=== PATIENT | male | born 1960 | race Caucasian/White ===

== ENCOUNTER 2024-01-07 08:13 | Inpatient (IN) | payer BC ==
--- NOTE | 2024-01-07 08:46 | ED ---
General Adult HPI - General Chief complaint: Neuro Symptoms/Deficit Stated complaint: L side weakness Time Seen by Provider: 01/07/24 08:25 Source: patient, RN notes reviewed, old records reviewed Mode of arrival: ambulatory Limitations: no limitations - History of Present Illness Initial comments: This is a 63-year-old male who presents to the emergency department the morning of the he states he got up and his left side was weak and got progres sively weaker. Patient states the symptoms were much worse this morning when he woke up but they seem to have gone away almost completely now. Patient denies any slurred speech. Patient has any facial droop. Patient Nuys any headache patient denies any numbness. Patient states earlier today it was difficult to lift his leg or to make his arm touches chest or belly. Patient denies any recent injury or trauma. Patient states he has a history of 2 previous TIAs. Patient states he takes 2 baby aspirin's every day. - Related Data Allergies Allergy/AdvReac Type Severity Reaction Status Date / Time Penicillins Allergy Unknown Verified 01/07/24 08:27 Review of Systems ROS Statement: Those systems with pertinent positive or pertinent negative responses have been documented in the HPI. ROS Other: All systems not noted in ROS Statement are negative. Past Medical History Past Medical History: CVA/TIA Past Surgical History: Tonsillectomy Additional Past Surgical History / Comment(s): Bilateral cataract, Past Psychological History: No Psychological Hx Reported Smoking Status: Former smoker Past Alcohol Use History: None Reported, Daily Past Drug Use History: None Reported General Exam - General Exam Comments Initial Comments: GENERAL: Patient is well-developed and well-nourished. Patient is nontoxic and well-h ydrated and is in no acute distress. ENT: Neck is soft and supple. No significant lymphadenopathy is noted. Oropharynx is clear. Moist mucous membranes. Neck has full range of motion without elic iting any pain. EYES: The sclera were anicteric and conjunctiva were pink and moist. Extraocular movements were intact and pupils were equal round and reactive to light. Eyelids were unremarkable. PULMONARY: Unlabored respirations. Good breath sounds bilaterally. No audible rales rhonchi or wheezing was noted. CARDIOVASCULAR: There is a regular rate and rhythm without any murmurs gallops or rubs. ABDOMEN: Soft and nontender with normal bowel sounds. SKIN: Skin is clear with no lesions or rashes and otherwise unremarkable. NEUROLOGIC: Patient is alert and oriented x3. Cranial nerves II through XII are grossly intact. Motor and sensory are also intact. Normal speech, volume and content. Symmetrical smile. Cerebellar exam grossly intact. Patient's NIH is 0 MUSCULOSKELETAL: Normal extremities with adequate strength and full range of motion. No lower extremity swelling or edema. No calf tenderness. LYMPHATICS: No significant lymphadenopathy is noted PSYCHIATRIC: Normal psychiatric evaluation. Limitations: no limitations Course Vital Signs 01/07/24 01/07/24 01/07/24 08:22 08:36 08:52 Temperature 97.9 F 98.7 F Pulse Rate 71 62 59 L Respiratory 18 18 16 Rate Blood Pressure 200/84 182/91 172/84 O2 Sat by Pulse 98 99 97 Oximetry 01/07/24 10:13 Temperature Pulse Rate 57 L Respiratory 16 Rate Blood Pressure 184/90 O2 Sat by Pulse 97 Oximetry Medical Decision Making - Medical Decision Making EKG is interpreted by myself but EKG shows a sinus rhythm at 62 bpm parables 146 QRS is 90 QT interval 397 QTc is 1. Patient EKG shows no ST segment elevation or depression Was pt. sent in by a medical professional or institution (, PA, C UNIX DEVELOPER, urgent care, hospital, or senior care...) When possible be specific @ -No Did you speak to anyone other than the patient for history (EMS, parent, family, police, friend...)? What history was obtained from this source @ -No Did you review nursing and triage notes (agree or disagree)? Why? @ -I reviewed and agree with nursing and triage notes Were old charts reviewed (outside hosp., previous admission, EMS record, old EKG, old radiological studies, urgent care reports/EKG's, senior care records)? Report findings @ -No old charts were reviewed Differential Diagnosis? @ -Differential CVA Ischemic stroke, hemorrhagic stroke, brain tumor, atypical migraine, Wernicke's encephalopathy, seizure, multiple sclerosis, meningitis, encephalitis, hypo glycemia, Guillain-Bernard, electrolytes disturbance, myasthenia gravis.... This is not meant to be an all-inclusive list EKG interpreted by me (3pts min.). @ -As above X-rays interpreted by me (1pt min.). @ -Chest x-ray shows no acute normality CT interpreted by me (1pt min.). @ -CT angiogram of the head and neck showed no acute normality. CT of the brain shows culver matter changes on the right which is new compared to an old EKG. U/S interpreted by me (1pt. min.). @ -None done What testing was considered but not performed or refused? (CT, X-rays, U/S, labs)? Why? @ -None What meds were considered but not given or refused? Why? @ -None Did you discuss the management of the patient with other professionals (professionals i.e. , PA, C UNIX DEVELOPER, lab, RT, psych nurse, health and social care teacher, senior mortgage loan processor, teacher, human resources officer, case assembler)? Give summary @ -I [facility] they agreed admit the patient Was smoking cessation discussed for >3mins.? @ -No Was critical care preformed (if so, how long)? @ -No Were there social determinants of health that impacted care today? How? (Frank elessness, low income, unemployed, alcoholism, drug addiction, transportation, low edu. Level, literacy, decrease access to med. care, correction, rehab)? @ -No Was there de-escalation of care discussed even if they declined (Discuss DNR or withdrawal of care, Hospice)? DNR status @ -No What co-morbidities impacted this encounter? (DM, HTN, Smoking, COPD, CAD, Cancer, CVA, ARF, Chemo, Hep., AIDS, mental health diagnosis, sleep apnea, morbid obesity)? @ -None Was patient admitted / discharged? Hospital course, mention meds given and route, prescriptions, significant lab abnormalities, going to OR and other pertinent info. @ -Patient's CAT scan was indicative of a possible infarct patient will need a further workup including MRI. Patient will be admitted and neurology will be consulted Undiagnosed new problem with uncertain prognosis? @ -No Drug Therapy requiring intensive monitoring for toxicity (Heparin, Nitro, Insulin, Cardizem)? @ -No Were any procedures done? @ -No Diagnosis/symptom? @ -CVA Acute, or Chronic, or Acute on Chronic? @ -Acute Uncomplicated (without systemic symptoms) or Complicated (systemic symptoms)? @ -Complicated Side effects of treatment? @ -No Exacerbation, Progression, or Severe Exacerbation? @ -No Poses a threat to life or bodily function? How? (Chest pain, USA, NM, pneumonia, PE, COPD, DKA, ARF, appy, cholecystitis, CVA, Diverticulitis, Homicidal, Suicidal, threat to staff... and all critical care pts) @ -Yes this can lead to further stroke and increased Morbidity mortality - Lab Data Result diagrams: 01/07/24 08:49 01/07/24 08:49 Lab Results 01/07/24 01/07/24 01/07/24 Range/Units 08:49 08:49 08:49 WBC 5.5 (3.8-10.6) k/uL RBC 4.82 (4.30-5.90) m/uL Hgb 15.6 (13.0-17.5) gm/dL Hct 47.4 (39.0-53.0) % MCV 98.4 (80.0-100.0) fL MCH 32.3 (25.0-35.0) pg MCHC 32.8 (31.0-37.0) g/dL RDW 12.6 (11.5-15.5) % Plt Count 204 (150-450) k/uL MPV 7.7 Neutrophils % 67 % Lymphocytes % 24 % Monocytes % 5 % Eosinophils % 1 % Basophils % 1 % Neutrophils # 3.7 (1.3-7.7) k/uL Lymphocytes # 1.3 (1.0-4.8) k/uL Monocytes # 0.3 (0-1.0) k/uL Eosinophils # 0.1 (0-0.7) k/uL Basophils # 0.0 (0-0.2) k/uL PT 10.2 (10.0-12.5) sec INR 0.9 (<1.2) APTT 23.5 (22.0-30.0) sec Sodium 142 (137-145) mmol/L Potassium 4.6 (3.5-5.1) mmol/L Chloride 109 H (98-107) mmol/L Carbon Dioxide 27 (22-30) mmol/L Anion Gap 6 mmol/L BUN 19 (9-20) mg/dL Creatinine 0.69 (0.66-1.25) mg/dL Est GFR (CKD-EPI)AfAm >90 (>60 ml/min/1.73 sqM) Est GFR (CKD-EPI)NonAf >90 (>60 ml/min/1.73 sqM) Glucose 120 H (74-99) mg/dL Calcium 9.6 (8.4-10.2) mg/dL Total Bilirubin 0.7 (0.2-1.3) mg/dL AST 42 (17-59) U/L ALT 52 H (4-49) U/L Alkaline Phosphatase 61 (38-126) U/L Creatine Kinase 84 (55-170) U/L Troponin I (0.000-0.034) ng/mL Total Protein 7.1 (6.3-8.2) g/dL Albumin 4.5 (3.5-5.0) g/dL 01/07/24 Range/Units 08:49 WBC (3.8-10.6) k/uL RBC (4.30-5.90) m/uL Hgb (13.0-17.5) gm/dL Hct (39.0-53.0) % MCV (80.0-100.0) fL MCH (25.0-35.0) pg MCHC (31.0-37.0) g/dL RDW (11.5-15.5) % Plt Count (150-450) k/uL MPV Neutrophils % % Lymphocytes % % Monocytes % % Eosinophils % % Basophils % % Neutrophils # (1.3-7.7) k/uL Lymphocytes # (1.0-4.8) k/uL Monocytes # (0-1.0) k/uL Eosinophils # (0-0.7) k/uL Basophils # (0-0.2) k/uL PT (10.0-12.5) sec INR (<1.2) APTT (22.0-30.0) sec Sodium (137-145) mmol/L Potassium (3.5-5.1) mmol/L Chloride (98-107) mmol/L Carbon Dioxide (22-30) mmol/L Anion Gap mmol/L BUN (9-20) mg/dL Creatinine (0.66-1.25) mg/dL Est GFR (CKD-EPI)AfAm (>60 ml/min/1.73 sqM) Est GFR (CKD-EPI)NonAf (>60 ml/min/1.73 sqM) Glucose (74-99) mg/dL Calcium (8.4-10.2) mg/dL Total Bilirubin (0.2-1.3) mg/dL AST (17-59) U/L ALT (4-49) U/L Alkaline Phosphatase (38-126) U/L Creatine Kinase (55-170) U/L Troponin I <0.012 (0.000-0.034) ng/mL Total Protein (6.3-8.2) g/dL Albumin (3.5-5.0) g/dL Disposition Clinical Impression: Cerebrovascular accident (CVA) Disposition: ADMITTED IP TO THIS HOSP Referrals: None,Stated [Primary Care Provider] - 1-2 days Time of Disposition: 10:38
[2024-01-07] MEDS: SODIUM CHLORIDE 0.9% 500 ML 500 ML IV STA (08:50)
[2024-01-07 09:04] LABS: INR 0.9 (<1.2); Partial Thromboplastin Time 23.5 sec (22.0-30.0); Prothrombin Time 10.2 sec (10.0-12.5)
[2024-01-07 09:06] LABS: ALT 52 U/L (4-49); AST 42 U/L (17-59); African American GFR (CKD) >90 (>60 ml/min/1.73 sqM); Albumin 4.5 g/dL (3.5-5.0); Alkaline Phosphatase 61 U/L (38-126); Anion Gap 6 mmol/L; Blood Urea Nitrogen 19 mg/dL (9-20); Calcium 9.6 mg/dL (8.4-10.2); Carbon Dioxide 27 mmol/L (22-30); Chloride 109 mmol/L (98-107); Creatine Kinase 84 U/L (55-170); Glucose 120 mg/dL (74-99); Non-African American GFR(CKD) >90 (>60 ml/min/1.73 sqM); Potassium 4.6 mmol/L (3.5-5.1); Sodium 142 mmol/L (137-145); Total Bilirubin 0.7 mg/dL (0.2-1.3); Total Protein 7.1 g/dL (6.3-8.2)
[2024-01-07 09:20] LABS: Basophils % (A) 1 %; Eosinophils # (A) 0.1 k/uL (0-0.7); Eosinophils % (A) 1 %; HCT 47.4 % (39.0-53.0); HGB 15.6 gm/dL (13.0-17.5); Lymphocytes # (A) 1.3 k/uL (1.0-4.8); Lymphocytes % (A) 24 %; MCH 32.3 pg (25.0-35.0); MCHC 32.8 g/dL (31.0-37.0); MCV 98.4 fL (80.0-100.0); Mean Platelet Volume 7.7; Monocytes # (A) 0.3 k/uL (0-1.0); Monocytes % (A) 5 %; Neutrophils # (A) 3.7 k/uL (1.3-7.7); Neutrophils % (A) 67 %; Platelet Count 204 k/uL (150-450); RBC 4.82 m/uL (4.30-5.90); RDW 12.6 % (11.5-15.5); WBC 5.5 k/uL (3.8-10.6)
--- NOTE | 2024-01-07 09:58 | CT ---
EXAMINATION TYPE: CT brain wo con CT DLP: 1208.9 mGycm, Automated exposure control for dose reduction was used. DATE OF EXAM: 01/07/2024 9:35 AM COMPARISON: None CLINICAL INDICATION:Male, 63 years old with history of Neuro deficit, acute, stroke suspected, Left s ided weakness TECHNIQUE: Brain: Axial CT images of the brain were obtained with coronal and sagittal reformats created and rev iewed. Contrast used: None. Oral contrast used: None. FINDINGS: Brain: Extra-axial spaces: No abnormal extra-axial fluid collections. Ventricular system: Within normal limits Cerebral parenchyma: Indeterminate culver matter changes in the right centrum semiovale series 201 imag e 44. With more remote appearing right mullen radiata injury. No acute intraparenchymal hemorrhage or mass effect. The remainder of the culver-white junctions are well differentiated. Cerebellum: Unremarkable. Mass effect: No evidence of midline shift. Intracranial vasculature: unremarkable Soft tissues: Normal. Calvarium/osseous structures: No depressed skull fracture. Paranasal sinuses and mastoid air cells: Mild scattered paranasal sinus disease. Visualized orbits: Bilateral aphakia IMPRESSION: Indeterminate right centrum semiovale culver matter changes series 201 image 44. Additional remote appe aring injury right mullen radiata of the frontal lobe. Correlate with MRI.
--- NOTE | 2024-01-07 10:01 | XR ---
EXAMINATION TYPE: XR chest 2V DATE OF EXAM: 01/07/2024 9:28 AM CLINICAL INDICATION:Male, 63 years old with history of altered mental status; [facility] COMPARISON: None TECHNIQUE: XR chest 2V Frontal view of the chest. FINDINGS: Lungs/Pleura: There is no evidence of pleural effusion, focal consolidation, or pneumothorax. Pulmonary vascularity: Unremarkable. Heart/mediastinum: Cardiomediastinal silhouette is unremarkable. Musculoskeletal: No acute osseous pathology. IMPRESSION: No acute cardiopulmonary disease/process.
--- NOTE | 2024-01-07 10:29 | CT ---
EXAMINATION TYPE: CT angio head neck DATE OF EXAM: 01/07/2024 HISTORY: Left sided weakness COMPARISON: None CT DLP: 419.4 mGycm. Automated Exposure Control for Dose Reduction was Utilized. TECHNIQUE: CTA scan of the head and neck is performed without and with IV Contrast, patient injected with 65 ml mL of Isovue 370, axial images are obtained, coronal and sagittal reformatted images are reviewed. 3D reconstructed images are created on an independent workstation and reviewed. 3-D postpro cessing was performed. FINDINGS: FINDINGS: The brachiocephalic origins are widely patent and no significant stenosis. There is no significant stenosis of the common or internal carotid arteries within the neck. There is no stenosis of the vertebral arteries. Intracranially, there is no stenosis, segmental occlusion, sizable aneurysm sac or vascular malformat ion. IMPRESSION:. No significant abnormality seen. NASCET criteria was used in interpretation of this exam?
[2024-01-07] MEDS: ASPIRIN 325 MG TAB PO STA (11:43)
[2024-01-07] MEDS: CLOPIDOGREL 75 MG TAB PO SCH (15:02)
--- NOTE | 2024-01-07 18:39 | P.CNNES ---
History of Present Illness Consult date: 01/07/24 Requesting physician: Velasquez Dangelo Reason for Consult: CVA History of Present Illness: Patient is a 63-year-old right-handed male came to the hospital this morning at 8:13 AM with strokelike symptoms. 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 He came back and went to sleep. When h rickey woke up finally at 5:30 AM, he felt dizzy, imbalance, and some weakness on the left side. He moved around, and by around 8 AM, symptoms started improving and was mostly gone by end of the day. On Thursday, yesterday he woke up and the same thing happened but was slightly worse. The symptoms persisted. This morning the symptoms got further worse with left-sided weakness, and he could not hold the phone with his left hand, his fingers did not work. He could not use the nasal spray with his left hand. He felt his left eye was droopy yesterday and this morning. He was feeling dizzy, leading to the left side and his balance was off. As the symptoms persisted, he decided to come to the ER. He denied any slurred speech or problem with the vision. Vital signs on arrival blood pressure 200/84, which came down to 182/91, pulse rate 71 temperature 97.9. Blood test shows normal CBC PT PTT, normal CMP with mildly elevated ALT 52. Troponin negative. EKG showed sinus rhythm CT head sh owed indeterminate right centrum semiovale culver matter changes. Additional remote appearing injury right mullen radiator of the frontal lobe. Correlate with MRI. I personally reviewed CT head and agree with the findings. Chest x- ray showed no acute process. CTA of head and neck showed no significant abnormality. Patient states his symptoms have improved today in the hospital. He was not abl e to coordinate his movement of the left arm but now has improved. Home medications include fish oil, garlic. Patient states that he does take aspirin 81 mg twice daily and some herbs as well. Patient states he had a TIA about 14 years ago when he was admitted to the hospital and [place] in [place]. It affected his right arm, right leg weakness, for which he underwent MRI of the brain and was noted to have a very small area of stroke. He had an echo with bubble study, which according to him did not show any "hole in the heart". He states that he had a event monitor placed for 1 month, which did not show any atrial fibrillation. The symptoms resolved in 3 weeks. He was placed on blood thinners. He had another TIA about 4 years ago in which she developed numbness of the medial 3 fingers of the right hand as well as the numbness of the right perioral region and the tongue. This time he did not seek medical attention. The symptoms went away in 3 weeks. Patient has smoked 2 pack/day for 26 years, quit at age 41 (22 years ago). Denies alcohol use. Review of Systems Constitutional: Denies chills, Denies fever Eyes: denies blurred vision, denies diplopia, denies pain Ears: deny: decreased hearing, ear discharge Ears, nose, mouth and throat: Denies headache, Denies sore throat Cardiovascular: Denies chest pain, Denies shortness of breath Respiratory: Denies cough, Denies excessive sputum Gastrointestinal: Denies abdominal pain, Denies diarrhea, Denies nausea, Denies vomiting Musculoskeletal: Denies low back pain, Denies myalgias, Denies neck pain Integumentary: Denies pruritus, Denies rash Neurological: Reports as per HPI Past Medical History Past Medical History: CVA/TIA Past Surgical History: Tonsillectomy Additional Past Surgical History / Comment(s): Bilateral cataract, Past Psychological History: No Psychological Hx Reported Smoking Status: Former smoker Past Alcohol Use History: None Reported, Daily Past Drug Use History: None Reported Medications and Allergies Home Medications Medication Instructions Recorded Confirmed Type Fish Oil(Unknown Dose) 1 cap PO DAILY 01/07/24 01/07/24 History Garlic(Unknown Dose) 1 cap PO DAILY 01/07/24 01/07/24 History Allergies Allergy/AdvReac Type Severity Reaction Status Date / Time Penicillins Allergy Unknown Verified 01/07/24 11:50 Childhood Physical Examination - Vital Signs Vital Signs: Vital Signs Temp Pulse Resp BP Pulse Ox 01/07/24 12:00 56 L 16 152/80 99 01/07/24 11:38 53 L 16 140/77 99 01/07/24 10:13 57 L 16 184/90 97 01/07/24 08:52 59 L 16 172/84 97 01/07/24 08:36 98.7 F 62 18 182/91 99 01/07/24 08:22 97.9 F 71 18 200/84 98 Intake and Output 01/06/24 01/07/24 01/07/24 22:59 06:59 14:59 Other: Weight 72.575 kg Patient is an elderly male, very pleasant, in no acute distress. Patient is alert awake oriented to time place and person. Speech and language functions are normal. Patient can name and repeat very well. No aphasia or dysarthria. Attention, concentration and fund of knowledge is adequate. On cranial nerve examination, pupils are equal, round and reacting to light, visual barajas are full on confrontation, with no neglect on double simultaneous stimulation. Extraocular muscles are intact with no nystagmus. Face is symmetric, tongue protrudes to the midline. Palatal elevation and sensation normal, hearing and shoulder shrug normal, facial sensation normal. On muscle strength testing, there is very mild left pronator drift about 5 to 10 degree, and the strength is normal in arms and legs distally and proximally. Deep tendon reflexes are symmetric 2 at the biceps, 2 brachioradialis, 2+ at the knees, 1+ ankles and plantar is down on the right, up on the left. Sensory to touch is equal with no neglect on double simultaneous stimulation. Cerebellar function showed no ataxia for [id number] testing. No dysdiadochokinesia. No ataxia for [id number] testing on either side. Tone and bulk of muscles normal. Gait deferred.. On general examination, there is no carotid bruit or murmur, S1-S2 audible. Chest is clear on consultation. Abdomen is soft nontender. No organomegaly, bowel sounds present. Peripheral pulses are present. No peripheral edema. Results - Laboratory Findings CBC and BMP: 01/07/24 08:49 01/07/24 08:49 Abnormal Lab Findings: Abnormal Labs 01/07/24 08:49 Chloride 109 H Glucose 120 H ALT 52 H Assessment and Plan Assessment: * Probable subacute ischemic stroke with mild left hemiparesis. Symptoms have remarkably improved, now with only mild left pronator drift with NIH stroke scale of 1. * Previous history of stroke/TIA x 2 in the past. Symptoms lasted for about 3 weeks each time, but patient has no residual deficits. * Abnormal CT head, with evidence of multiple previous CVA, mainly involving the right centrum semiovale, right external capsule * Ex tobacco use Plan: MRI of the brain with and without contrast, evaluate for acute CVA, rule out demyelinating disease 2-D echo with bubble study to rule out PFO CTA head and neck showed: No significant abnormality seen. Fasting a.m. lipid panel Hemoglobin A1c Permissive hypertension for next 24-48 hours Patient has been taking aspirin 81 mg twice daily prior to arrival. He has failed aspirin. We will start Plavix 75 mg daily. Neuro checks every 4 hours Telemetry monitoring rule out any arrhythmia PT, OT, speech therapy DVT prophylaxis: Heparin 5000 units subcu every 8 hours Neurology will continue to follow. Thank you for the consult. Time with Patient: Greater than 30
[2024-01-07] MEDS ORDERED: HYDROcodone/APAP 5-325MG 1 EACH TAB PO PRN (21:12)
[2024-01-07] MEDS: ACETAMINOPHEN TAB 325 MG TAB PO PRN (21:56)
--- NOTE | 2024-01-07 23:08 | P.HPIM ---
History of Present Illness H&P Date: 01/07/24 Chief Complaint: Left-sided weakness Patient is a 63-year-old male with known history of CVA/TIA x 2, prior history of smoking presents to ER with the complaints of left-sided weakness. Patient states that he got up yesterday morning and felt his left of the body is weaker compared to right. Patient's symptoms did improve throughout the day but when he woke up this morning his symptoms got worse which made him to come to the ER. Patient is complaining of left upper and lower extremity weakness. Denies any facial deviation. No droop. Denies slurred speech. Denies any trouble finding words. No complaints of headache. No numbness or tingling. Denies any neck p ain or shoulder pain. Denies any recent illnesses. Patient had prior history of TIA x 2 several years ago which affected his right side at that time. And had stroke workup done including MRI at that time. Patient has been taking aspirin. EKG showed sinus rhythm with CT head showed intermediate right centrum semiovale culver matter changes additional remote appearing injury right coronary radiator of the frontal lobe. Correlate with MRI. Chest x-ray showed no acute cardiopulmonary process. CT angiogram of the head and neck showed brachiocephalic arteries are widely patent with no significant stenosis. Lab data showed WBC 5.4 hemoglobin 13.6 and platelets 204 Sodium 142 potassium 4.6 chloride 109 bicarb is 27 BUN 19 and creatinine 0.69 and blood sugar 120 and A1c 6.2. Liver enzymes showed AST 42 ALT 42 and alk phos 61 troponin x 1 negative. Albumin 4.5. Review of Systems Constitutional: Patient denies any fever or chills . No generalized weakness or weight loss. Abdomen: Patient denied nausea vomiting and diarrhea and abdominal pain. Cardiovascular: Patient denies any chest pain or short of breath no palpitations. Respiratory: patient denied any cough or sputum production. No shortness of breath Neurologic: Patient denied any numbness or tingling. no headache. Left-sided weakness. Musculoskeletal: Patient denies any complaints of joint swelling or deformity. Skin: Negative Psychiatric: Negative Endocrine: No heat or cold intolerance. No recent weight gain. Genitourinary: No dysuria or hematuria. All other 14 point ROS negative except the above Past Medical History Past Medical History: CVA/TIA Past Surgical History: Tonsillectomy Additional Past Surgical History / Comment(s): Bilateral cataract, Past Psychological History: No Psychological Hx Reported Smoking Status: Former smoker Past Alcohol Use History: None Reported, Daily Past Drug Use History: None Reported Medications and Allergies Home Medications Medication Instructions Recorded Confirmed Type Fish Oil(Unknown Dose) 1 cap PO DAILY 01/07/24 01/07/24 History Garlic(Unknown Dose) 1 cap PO DAILY 01/07/24 01/07/24 History Allergies Allergy/AdvReac Type Severity Reaction Status Date / Time Penicillins Allergy Unknown Verified 01/07/24 11:50 Childhood Physical Exam Vitals: Vital Signs Temp Pulse Resp BP Pulse Ox 01/07/24 15:48 50 L 16 172/89 99 01/07/24 15:00 68 16 194/90 01/07/24 12:00 56 L 16 152/80 99 01/07/24 11:38 53 L 16 140/77 99 01/07/24 10:13 57 L 16 184/90 97 01/07/24 08:52 59 L 16 172/84 97 01/07/24 08:36 98.7 F 62 18 182/91 99 01/07/24 08:22 97.9 F 71 18 200/84 98 Intake and Output 01/07/24 01/07/24 01/07/24 06:59 14:59 22:59 Other: Weight 72.575 kg PHYSICAL EXAMINATION: Patient is lying in the bed comfortably, no acute distress, awake alert and oriented.. HEENT: Normocephalic. Neck is supple. Pupils reactive. Nostrils clear. Oral cavity is moist. Neck reveals no JVD, carotid bruits, or thyromegaly. CHEST EXAMINATION: Trachea is central. Symmetrical expansion. Lung barajas clear to auscultation and percussion. CARDIAC: Normal S1, S2 with no gallops. No murmurs ABDOMEN: Soft. Bowel sounds normal. No organomegaly. No abdominal bruits. Extremities: reveal no edema. No clubbing or cyanosis Neurologically awake, alert, oriented x3 patient does have left-sided hemiparalysis. Skin: No rash or skin lesions. Psychiatric: Coperative. Nonsuicidal Musculoskeletal: No joint swelling or deformity. Normal range of motion. Results CBC & Chem 7: 01/07/24 08:49 01/08/24 07:01 Labs: Abnormal Lab Results - Last 24 Hours (Table) 01/07/24 Range/Units 08:49 Chloride 109 H (98-107) mmol/L Glucose 120 H (74-99) mg/dL ALT 52 H (4-49) U/L Thrombosis Risk Factor Assmnt - DVT/VTE Prophylaxis DVT/VTE Prophylaxis: Pharmacologic Prophylaxis ordered Assessment and Plan Assessment: Possible subacute CVA with left-sided hemiparesis. CT head showed intermediate right centrum's semiovale culver matter changes and additional appearing in the right mullen radiata of frontal lobe. Prior history of TIA x 2. Patient had right-sided weakness at that time which has been resolved after couple of weeks. Prior history of smoking DVT prophylaxis with heparin subcu Plan: Patient will be continued on aspirin and statins. A1c B12 folate and TSH levels was ordered. Patient had workup including CT head and CTA head and neck was done which showed no significant stenosis. MRI of the brain was ordered to rule out acute CVA or demyelinating disease. 2D echocardiogram was ordered with bubble study. Continue with neurochecks every 4 hourly. Continue telemonitoring. PT OT and speech therapy evaluation. Follow-up closely. Neurology is on board. Time with Patient: Greater than 30
[2024-01-07] MEDS: HEPARIN SODIUM,PORCINE 5,000 UNIT/ML 1 ML VIAL SQ SCH (23:28)
[2024-01-08 07:55] LABS: African American GFR (CKD) >90 (>60 ml/min/1.73 sqM); Anion Gap 4 mmol/L; Blood Urea Nitrogen 14 mg/dL (9-20); Calcium 9.7 mg/dL (8.4-10.2); Carbon Dioxide 27 mmol/L (22-30); Chloride 107 mmol/L (98-107); Glucose 109 mg/dL (74-99); Non-African American GFR(CKD) >90 (>60 ml/min/1.73 sqM); Potassium 4.4 mmol/L (3.5-5.1); Sodium 138 mmol/L (137-145)
[2024-01-08] MEDS: ASPIRIN 325 MG TAB PO SCH (08:32)
[2024-01-08] MEDS: CLOPIDOGREL 75 MG TAB PO STA (13:54)
--- NOTE | 2024-01-08 15:03 | CA ---
Transthoracic Echo Report Name: Ganga Hawk Age: 63 Gender: M : 1960 Exam Date: 01/07/2024 15:10 Exam Location: [place] [facility] Ht (in): 72 Wt (lb): 160 Ordering Physician: Juan Hare MD Attending/Referring Phys: Junior Accounting Clerk Kaye Lares RDCS Procedure CPT: Indications: CVA Cardiac Hx: Technical Quality: Fair Contrast 1: Total Dose (mL): Contrast 2: Total Dose (mL): MEASUREMENTS (Male / Female) Normal Values 2D ECHO LV Diastolic Diameter PLAX 4.8 cm 4.2 - 5.9 / 3.9 - 5.3 cm LV Systolic Diameter PLAX 3.5 cm IVS Diastolic Thickness 1.2 cm 0.6 - 1.0 / 0.6 - 0.9 cm LVPW Diastolic Thickness 1.1 cm 0.6 - 1.0 / 0.6 - 0.9 cm LV Relative Wall Thickness 0.5 RV Internal Dim ED PLAX 2.8 cm LA Systolic Diameter LX 0.0 cm 3.0 - 4.0 / 2.7 - 3.8 cm LA Volume 45.9 cm??? 18 - 58 / 22 - 52 cm??? LA Volume Index 24.0 cm???/m??? 16 - 28 cm???/m??? M-MODE Aortic Root Diameter MM 3.5 cm LA Systolic Diameter MM 3.6 cm LA Ao Ratio MM 1.0 AV Cusp Separation MM 2.5 cm DOPPLER AV Peak Velocity 86.0 cm/s AV Peak Gradient 3.0 mmHg AV Mean Velocity 57.3 cm/s AV Mean Gradient 1.5 mmHg AV Velocity Time Integral 18.8 cm LVOT Peak Velocity 87.5 cm/s LVOT Peak Gradient 3.1 mmHg LVOT Velocity Time Integral 17.9 cm MV Area PHT 2.6 cm??? Mitral E Point Velocity 79.5 cm/s Mitral A Point Velocity 67.0 cm/s Mitral E to A Ratio 1.2 MV Deceleration Time 291.9 ms MV E' Velocity 7.3 cm/s Mitral E to MV E' Ratio 10.9 FINDINGS Left Ventricle Mildly increased left ventricular wall thickness. Left ventricular cavity size normal. Normal left ventricular systolic function with no obvious regional wall motion abnormalities. Left ventricular ejection fraction is estimated at 55-60 %. Normal left ventricular diastolic filling pattern. Right Ventricle Mild right ventricular dilatation. Right ventricular systolic pressure within normal limits. Right Atrium Mild right atrial dilatation. Left Atrium Normal left atrial size. Mitral Valve Structurally normal mitral valve. Mitral valve thickened. Mild mitral annular calcification. Mild mitral regurgitation. Aortic Valve Trileaflet aortic valve. No aortic stenosis. Trace aortic regurgitation. Tricuspid Valve Structurally normal tricuspid valve. Mild tricuspid regurgitation. Pulmonic Valve Structurally normal pulmonic valve. Trace pulmonic regurgitation. Pericardium No pericardial effusion. Aorta Normal size aortic root and proximal ascending aorta. CONCLUSIONS Patient refused Agitated saline study. Left ventricular ejection fraction 55-60% Mild mitral regurgitation Trace aortic regurgitation Mild tricuspid regurgitation Previewed by: Dr. Delvin Dunham DO (Electronically Signed) Final Date: 08 January 2024 15:02
[2024-01-08 15:39] LABS: Chol/HDL Ratio 5.07 Ratio; LDL Cholesterol,Calculated 210.2 mg/dL (0.0-131.0)
--- NOTE | 2024-01-08 16:03 | P.PN ---
Subjective Progress Note Date: 01/08/24 Patient was seen for a follow-up. Patient states his left arm is slightly worse. No other concerns. Denies any slurred speech, or any symptoms in the lower limbs. Objective - Vital Signs Vital signs: Vital Signs Temp 97.4 F L 01/08/24 11:28 Pulse 60 01/08/24 11:28 Resp 20 01/08/24 11:28 BP 159/84 01/08/24 11:28 Pulse Ox 99 01/08/24 11:28 FiO2 Intake & Output 01/07/24 01/08/24 01/08/24 18:59 06:59 18:59 Intake Total 120 Balance 120 Weight 72.575 kg 70.9 kg Intake: Oral 120 Other: Voiding Method Toilet # Voids 2 2 - Exam On examination, mental status, speech and language functions are normal. Cran ial nerves are all normal. No facial droop. Visual barajas are full. On muscle strength testing there is left pronator drift, and it is much worse than yesterday. Today it is dropping down about 70 degree, but not hitting the bed. No drifting of the left lower extremity. Patient has developed mild ataxia for [id number] testing with the left upper limb. Muscle strength is normal. Sensory to touch is equal with no neglect. - Labs CBC & Chem 7: 01/07/24 08:49 01/08/24 07:01 Labs: Abnormal Lab Results - Last 24 Hours (Table) 01/07/24 01/08/24 Range/Units 08:49 07:01 Creatinine 0.65 L (0.66-1.25) mg/dL Glucose 109 H (74-99) mg/dL Hemoglobin A1c 6.2 H (<=6.0) % Assessment and Plan Assessment: * Probable subacute ischemic stroke with mild left hemiparesis. Symptoms have slightly worsened as compared to yesterday. Patient has slightly more left pronator drift, and now has slight ataxia with NIH stroke scale of 2. * Previous history of stroke/TIA x 2 in the past. Symptoms lasted for about 3 weeks each time, but patient has no residual deficits. * Abnormal CT head, with evidence of multiple previous CVA, mainly involving the right centrum semiovale, right external capsule * Hyperlipidemia * Prediabetes with A1c 6.2 * Ex tobacco use Plan: Await MRI of the brain with and without contrast, evaluate for acute CVA, rule out demyelinating disease 2-D echo revealed normal left ventricular cavity size. No regional wall motion abnormalities. EF is normal 55 to 60%. Normal left atrial size. Mild right atrial dilation. Mild right ventricular dilation. Patient refused agitated saline study. CTA head and neck showed: No significant abnormality seen. Fasting a.m. lipid panel with cholesterol 300, LDL 210, HDL 59 and triglycerides 153. Start Lipitor 80 mg daily. Hemoglobin A1c 6.2. Permissive hypertension for next 24 hours Patient has been taking aspirin 81 mg twice daily prior to arrival. He has loyda led aspirin. We will start Plavix 75 mg daily. Patient's symptoms have slightly worsened today. We will give an extra loading dose of Plavix 150 mg x 1. Continue DAPT at least for 21 days. Neuro checks every 4 hours Telemetry monitoring rule out any arrhythmia PT, OT, speech therapy DVT prophylaxis: Heparin 5000 units subcu every [address] Luna will cover neurology service over the weekend.
[2024-01-08] MEDS: ATORVASTATIN 80 MG TAB PO SCH (19:29)
--- NOTE | 2024-01-09 12:14 | P.PN ---
Subjective Progress Note Date: 01/09/24 The patient is a 63-year-old male who was seen in neurologic follow-up on January 09, 2024, in collaboration with Maria Antonia Gonzalez, via teleneurology. The chart has been reviewed. Patient did receive his MRI of the brain yesterday. At the time of this note, report is pending. I have personally viewed the images. There is evidence of an acute infarct involving the right basal ganglia region. This morning, the patient reports feeling as if his left arm is weaker. He says he notices that the weakness seems to be worse in the morning when he first awakens. Once he moves around little bit the weakness seems to improve. He reportedly did work with physical therapy this morning. They are recommending discharge home. The patient is concerned about his ability to recover his strength. Objective - Vital Signs Vital signs: Vital Signs Temp 98.0 F 01/09/24 08:32 Pulse 62 01/09/24 08:32 Resp 16 01/09/24 08:32 BP 157/88 01/09/24 08:32 Pulse Ox 99 01/09/24 08:32 FiO2 Intake & Output 01/08/24 01/09/24 01/09/24 18:59 06:59 18:59 Intake Total 360 Balance 360 Weight 70.1 kg Intake: Oral 360 Other: Voiding Method Toilet # Voids 3 2 - Exam General: The patient is awake and alert. He is well-nourished and in no acute distress. HEENT: Head is atraumatic, normocephalic. Fundus not visualized. There is no scleral icterus. Mucous members are moist. Neurological examination Mental status: Patient is awake, alert and oriented x 3. His speech is clear. There is no dysarthria or aphasia. Cranial nerves: Pupils are equal at 3 mm and reactive. Visual barajas are full to confrontation. Extraocular movements are intact. There is no nystagmus. Facial sensation is intact. There is no facial asymmetry. Hearing is grossly intact. Uvula and palate are midline. Shoulder shrug is symmetric. Tongue protrudes midline. Motor: Strength is (left/right): [employer] 3/5, triceps 4/5, biceps 3/5, hip flexors 4/5, ankle plantar flexors 5/5, ankle dorsiflexors 5/5 Sensation: Grossly intact to light touch throughout. There is no extinction with double simultaneous stimulation. Coordination: [id number], [id number] and rapid alternating movements are intact. There is no pronator drift. Deep tendon reflexes: 3+/4+ left upper and lower extremities. Right-sided reflexes 2+/4+. Plantar responses not assessed at this time. Gait: Not assessed - Labs CBC & Chem 7: 01/07/24 08:49 01/08/24 07:01 Labs: Abnormal Lab Results - Last 24 Hours (Table) 01/08/24 Range/Units 07:01 Triglycerides 153.00 H (0.00-149.00) mg/dL Cholesterol 300.00 H (0.00-200.00) mg/dL LDL Cholesterol, Calc 210.2 H (0.0-131.0) mg/dL Assessment and Plan Assessment: Acute right mullen radiata infarct with left hemiparesis * Previous history of stroke/TIA x 2 in the past. Symptoms lasted for about 3 weeks each time, but patient has no residual deficits. * Abnormal CT head, with evidence of multiple previous CVA, mainly involving the right centrum semiovale, right external capsule * Ex tobacco use Plan: 2-D echo with bubble study to rule out PFO CTA head and neck showed: No significant abnormality seen. Fasting a.m. lipid panel Hemoglobin A1c Permissive hypertension for next 24-48 hours Patient has been taking aspirin 81 mg twice daily prior to arrival. He has f rebecca aspirin. We will start Plavix 75 mg daily. Stroke workup is complete. Discussed statin with patient who advised that his hyperlipidemia is genetic and that he has tried other statins in the past, without benefit. I advised that simply taking a statin will reduce his risk of further stroke. I advised that he discuss this with his family doctor. The patient is neurologically stable for discharge Time with Patient: Greater than 30 (35 minutes were spent caring for this patient today including, obtaining history, examining the patient, reviewing imaging, chart documentation, labs and creating this note)
[2024-01-10 07:33] LABS: Basophils % (A) 1 %; Eosinophils # (A) 0.1 k/uL (0-0.7); Eosinophils % (A) 2 %; HCT 45.2 % (39.0-53.0); HGB 14.9 gm/dL (13.0-17.5); Lymphocytes # (A) 1.6 k/uL (1.0-4.8); Lymphocytes % (A) 34 %; MCH 32.6 pg (25.0-35.0); MCV 98.9 fL (80.0-100.0); Mean Platelet Volume 7.6; Monocytes # (A) 0.3 k/uL (0-1.0); Monocytes % (A) 6 %; Neutrophils # (A) 2.7 k/uL (1.3-7.7); Neutrophils % (A) 56 %; Platelet Count 234 k/uL (150-450); RBC 4.57 m/uL (4.30-5.90); RDW 12.6 % (11.5-15.5); WBC 4.8 k/uL (3.8-10.6)
[2024-01-10 07:52] LABS: African American GFR (CKD) >90 (>60 ml/min/1.73 sqM); Anion Gap 3 mmol/L; Blood Urea Nitrogen 28 mg/dL (9-20); Calcium 9.5 mg/dL (8.4-10.2); Carbon Dioxide 25 mmol/L (22-30); Chloride 109 mmol/L (98-107); Glucose 115 mg/dL (74-99); Non-African American GFR(CKD) >90 (>60 ml/min/1.73 sqM); Potassium 4.2 mmol/L (3.5-5.1); Sodium 137 mmol/L (137-145)
[2024-01-10] MEDS: amLODIPine 5 MG TAB PO SCH (11:15)
--- NOTE | 2024-01-11 01:25 | P.PN ---
Subjective Progress Note Date: 01/08/24 Patient is a 63-year-old male with known history of CVA/TIA x 2, prior history of smoking presents to ER with the complaints of left-sided weakness. Patient states that he got up yesterday morning and felt his left of the body is weaker compared to right. Patient's symptoms did improve throughout the day but when he woke up this morning his symptoms got worse which made him to come to the ER. Patient is complaining of left upper and lower extremity weakness. Denies any facial deviation. No droop. Denies slurred speech. Denies any trouble finding words. No complaints of headache. No numbness or tingling. Denies any neck pain or shoulder pain. Denies any recent illnesses. Patient had prior history of TIA x 2 several years ago which affected his right side at that time. And had stroke workup done including MRI at that time. Patient has been taking aspirin. EKG showed sinus rhythm with CT head showed intermediate right centrum semiovale culver matter changes additional remote appearing injury right coronary radiator of the frontal lobe. Correlate with MRI. Chest x-ray showed no acute cardiopulmonary process. CT angiogram of the head and neck showed brachiocephalic arteries are widely patent with no significant stenosis. Lab data showed WBC 5.4 hemoglobin 13.6 and platelets 204 Sodium 142 potassium 4.6 chloride 109 bicarb is 27 BUN 19 and creatinine 0.69 and blood sugar 120 and A1c 6.2. Liver enzymes showed AST 42 ALT 42 and alk phos 61 troponin x 1 negative. Albumin 4.5. 01/08/2024 Patient is resting in the bed. Awake alert and oriented x 3. No complaints of chest pain or shortness of breath. No nausea vomiting abdominal pain or diarrhea. No cough or sputum production. Left arm weakness is worse when he woke from sleep as per patient. Denies any slurred speech. No difficulty swallowing. Patient is being continued on aspirin and Plavix. Dual antiplatelet agents for 21 days as per neurology recommendations. MRI of the brain was done awaiting report. 2D echocardiogram showed ejection fraction 55 to 60% with no significant valve abnormality. Patient refused agitated saline study. Laboratory data showed sodium 138 potassium 4.4 chloride 107 BUN 49 creatinine 0.65. The LDL 210 total cholesterol 300 and triglycerides 153. Current medications reviewed. Objective - Vital Signs Vital signs: Vital Signs Temp 97.9 F 01/08/24 20:00 Pulse 65 01/08/24 20:00 Resp 18 01/08/24 20:00 BP 152/87 01/08/24 20:00 Pulse Ox 97 01/08/24 20:00 FiO2 Intake & Output 01/08/24 01/08/24 01/09/24 06:59 18:59 06:59 Intake Total 360 Balance 360 Weight 70.9 kg Intake: Oral 360 Other: Voiding Method Toilet Toilet # Voids 2 3 - Exam PHYSICAL EXAMINATION: Patient is lying in the bed comfortably, no acute distress, awake alert and oriented.. HEENT: Normocephalic. Neck is supple. Pupils reactive. Nostrils clear. Oral cavity is moist. Neck reveals no JVD, carotid bruits, or thyromegaly. CHEST EXAMINATION: Trachea is central. Symmetrical expansion. Lung barajas clear to auscultation and percussion. CARDIAC: Normal S1, S2 with no gallops. No murmurs ABDOMEN: Soft. Bowel sounds normal. No organomegaly. No abdominal bruits. Extremities: reveal no edema. No clubbing or cyanosis Neurologically awake, alert, oriented x3 patient does have left-sided hemiparalysis. Left upper extremity more than lower extremity. Skin: No rash or skin lesions. Psychiatric: Coperative. Nonsuicidal Musculoskeletal: No joint swelling or deformity. Normal range of motion. - Labs CBC & Chem 7: 01/10/24 07:06 01/10/24 07:06 Labs: Abnormal Lab Results - Last 24 Hours (Table) 01/08/24 Range/Units 07:01 Creatinine 0.65 L (0.66-1.25) mg/dL Glucose 109 H (74-99) mg/dL Triglycerides 153.00 H (0.00-149.00) mg/dL Cholesterol 300.00 H (0.00-200.00) mg/dL LDL Cholesterol, Calc 210.2 H (0.0-131.0) mg/dL Assessment and Plan Assessment: subacute CVA with left-sided hemiparesis. CT head showed intermediate right centrum's semiovale culver matter changes and additional appearing in the right mullen radiata of frontal lobe. Prior history of TIA x 2. Patient had right-sided weakness at that time which has been resolved after couple of weeks. Hyperlipidemia Prior history of smoking DVT prophylaxis with heparin subcu Plan: Patient will be continued on aspirin and statins. A1c B12 folate and TSH levels within normal limits.. Continue with aspirin and Plavix, DAPT for 21 days. Patient had workup including CT head and CTA head and neck was done which showed no significant stenosis. MRI of the brain was ordered to rule out acute CVA or demyelinating disease. Awaiting report. 2D echocardiogram was ordered with bubble study. Patient refused bubble study. Echocardiogram showed ejection fraction 55 to 60%. No significant valvular abnormalities. Continue with neurochecks every 4 hourly. Continue telemonitoring. PT OT and speech therapy evaluation. Follow-up closely. Neurology is on board.
--- NOTE | 2024-01-11 01:28 | P.PN ---
Subjective Progress Note Date: 01/09/24 Patient is a 63-year-old male with known history of CVA/TIA x 2, prior history of smoking presents to ER with the complaints of left-sided weakness. Patient states that he got up yesterday morning and felt his left of the body is weaker compared to right. Patient's symptoms did improve throughout the day but when he woke up this morning his symptoms got worse which made him to come to the ER. Patient is complaining of left upper and lower extremity weakness. Denies any facial deviation. No droop. Denies slurred speech. Denies any trouble finding words. No complaints of headache. No numbness or tingling. Denies any neck pain or shoulder pain. Denies any recent illnesses. Patient had prior history of TIA x 2 several years ago which affected his right side at that time. And had stroke workup done including MRI at that time. Patient has been taking aspirin. EKG showed sinus rhythm with CT head showed intermediate right centrum semiovale culver matter changes additional remote appearing injury right coronary radiator of the frontal lobe. Correlate with MRI. Chest x-ray showed no acute cardiopulmonary process. CT angiogram of the head and neck showed brachiocephalic arteries are widely patent with no significant stenosis. Lab data showed WBC 5.4 hemoglobin 13.6 and platelets 204 Sodium 142 potassium 4.6 chloride 109 bicarb is 27 BUN 19 and creatinine 0.69 and blood sugar 120 and A1c 6.2. Liver enzymes showed AST 42 ALT 42 and alk phos 61 troponin x 1 negative. Albumin 4.5. 01/08/2024 Patient is resting in the bed. Awake alert and oriented x 3. No complaints of chest pain or shortness of breath. No nausea vomiting abdominal pain or diarrhea. No cough or sputum production. Left arm weakness is worse when he woke from sleep as per patient. Denies any slurred speech. No difficulty swallowing. Patient is being continued on aspirin and Plavix. Dual antiplatelet agents for 21 days as per neurology recommendations. MRI of the brain was done awaiting report. 2D echocardiogram showed ejection fraction 55 to 60% with no significant valve abnormality. Patient refused agitated saline study. Laboratory data showed sodium 138 potassium 4.4 chloride 107 BUN 49 creatinine 0.65. The LDL 210 total cholesterol 300 and triglycerides 153. 01/09/2024 Patient is currently resting in bed. Awake alert and oriented x 3. Still having left upper extremity weakness more than right lower extremity. Patient denies any slurred speech. No difficulty swallowing. PT OT was consulted. MRI report is pending. Patient is on dual antiplatelet treatment. Laboratory data reviewed. Neurology is on board. Current medications reviewed. Objective - Vital Signs Vital signs: Vital Signs Temp 97.9 F 01/09/24 20:00 Pulse 56 L 01/09/24 20:00 Resp 18 01/09/24 20:00 BP 155/84 01/09/24 20:00 Pulse Ox 98 01/09/24 20:00 FiO2 Intake & Output 01/09/24 01/09/24 01/10/24 06:59 18:59 06:59 Intake Total 480 Balance 480 Weight 70.1 kg Intake: Oral 480 Other: Voiding Method Toilet Toilet Toilet # Voids 2 2 2 - Exam PHYSICAL EXAMINATION: Patient is lying in the bed comfortably, no acute distress, awake alert and oriented.. HEENT: Normocephalic. Neck is supple. Pupils reactive. Nostrils clear. Oral cavity is moist. Neck reveals no JVD, carotid bruits, or thyromegaly. CHEST EXAMINATION: Trachea is central. Symmetrical expansion. Lung barajas clear to auscultation and percussion. CARDIAC: Normal S1, S2 with no gallops. No murmurs ABDOMEN: Soft. Bowel sounds normal. No organomegaly. No abdominal bruits. Extremities: reveal no edema. No clubbing or cyanosis Neurologically awake, alert, oriented x3 patient does have left-sided hemiparalysis. Left upper extremity more than lower extremity. Skin: No rash or skin lesions. Psychiatric: Coperative. Nonsuicidal Musculoskeletal: No joint swelling or deformity. Normal range of motion. 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 CT head showed intermediate right centrum's semiovale culver matter changes and additional appearing in the right mullen radiata of frontal lobe. Prior history of TIA x 2. Patient had right-sided weakness at that time which has been resolved after couple of weeks. Hyperlipidemia Prior history of smoking DVT prophylaxis with heparin subcu Plan: Patient will be continued on aspirin and statins. A1c B12 folate and TSH levels within normal limits.. Continue with aspirin and Plavix, DAPT for 21 days. Patient had workup including CT head and CTA head and neck was done which showed no significant stenosis. MRI of the brain was ordered to rule out acute CVA or demyelinating disease. Awaiting report. 2D echocardiogram was ordered with bubble study. Patient refused bubble study. Echocardiogram showed ejection fraction 55 to 60%. No significant valvular abnormalities. Continue with neurochecks every 4 hourly. Continue telemonitoring. PT OT and speech therapy evaluation. Follow-up closely. Neurology is on board. Time with Patient: Greater than 30
--- NOTE | 2024-01-11 01:30 | P.PN ---
Subjective Progress Note Date: 01/10/24 Patient is a 63-year-old male with known history of CVA/TIA x 2, prior history of smoking presents to ER with the complaints of left-sided weakness. Patient states that he got up yesterday morning and felt his left of the body is weaker compared to right. Patient's symptoms did improve throughout the day but when he woke up this morning his symptoms got worse which made him to come to the ER. Patient is complaining of left upper and lower extremity weakness. Denies any facial deviation. No droop. Denies slurred speech. Denies any trouble finding words. No complaints of headache. No numbness or tingling. Denies any neck pain or shoulder pain. Denies any recent illnesses. Patient had prior history of TIA x 2 several years ago which affected his right side at that time. And had stroke workup done including MRI at that time. Patient has been taking aspirin. EKG showed sinus rhythm with CT head showed intermediate right centrum semiovale culver matter changes additional remote appearing injury right coronary radiator of the frontal lobe. Correlate with MRI. Chest x-ray showed no acute cardiopulmonary process. CT angiogram of the head and neck showed brachiocephalic arteries are widely patent with no significant stenosis. Lab data showed WBC 5.4 hemoglobin 13.6 and platelets 204 Sodium 142 potassium 4.6 chloride 109 bicarb is 27 BUN 19 and creatinine 0.69 and blood sugar 120 and A1c 6.2. Liver enzymes showed AST 42 ALT 42 and alk phos 61 troponin x 1 negative. Albumin 4.5. 01/08/2024 Patient is resting in the bed. Awake alert and oriented x 3. No complaints of chest pain or shortness of breath. No nausea vomiting abdominal pain or diarrhea. No cough or sputum production. Left arm weakness is worse when he woke from sleep as per patient. Denies any slurred speech. No difficulty swallowing. Patient is being continued on aspirin and Plavix. Dual antiplatelet agents for 21 days as per neurology recommendations. MRI of the brain was done awaiting report. 2D echocardiogram showed ejection fraction 55 to 60% with no significant valve abnormality. Patient refused agitated saline study. Laboratory data showed sodium 138 potassium 4.4 chloride 107 BUN 49 creatinine 0.65. The LDL 210 total cholesterol 300 and triglycerides 153. 01/09/2024 Patient is currently resting in bed. Awake alert and oriented x 3. Still having left upper extremity weakness more than right lower extremity. Patient denies any slurred speech. No difficulty swallowing. PT OT was consulted. MRI report is pending. Patient is on dual antiplatelet treatment. Laboratory data reviewed. Neurology is on board. 01/10/2024 Patient is currently sitting in the chair. Left upper extremity weakness remains sustained. Denies any complaints of headache or dizziness. Tolerating oral diet. PT OT is on consult. Laboratory reviewed. Anticipate discharge to rehab in the next 24 hours. No other acute overnight issues. Patient's blood pressure is elevated and was started on Norvasc and add medications as needed. Current medications reviewed. Objective - Vital Signs Vital signs: Vital Signs Temp 96.8 F L 01/10/24 20:00 Pulse 62 01/10/24 20:00 Resp 16 01/10/24 20:00 BP 145/83 01/10/24 20:00 Pulse Ox 97 01/10/24 20:00 FiO2 Intake & Output 01/10/24 01/10/24 01/11/24 06:59 18:59 06:59 Intake Total 480 236 Balance 480 236 Weight 69.2 kg Intake: Oral 480 236 Other: Voiding Method Toilet Toilet # Voids 1 1 - Exam PHYSICAL EXAMINATION: Patient is lying in the bed comfortably, no acute distress, awake alert and oriented.. HEENT: Normocephalic. Neck is supple. Pupils reactive. Nostrils clear. Oral cavity is moist. Neck reveals no JVD, carotid bruits, or thyromegaly. CHEST EXAMINATION: Trachea is central. Symmetrical expansion. Lung barajas clear to auscultation and percussion. CARDIAC: Normal S1, S2 with no gallops. No murmurs ABDOMEN: Soft. Bowel sounds normal. No organomegaly. No abdominal bruits. Extremities: reveal no edema. No clubbing or cyanosis Neurologically awake, alert, oriented x3 patient does have left-sided hemiparalysis. Left upper extremity more than lower extremity. Skin: No rash or skin lesions. Psychiatric: Coperative. Nonsuicidal Musculoskeletal: No joint swelling or deformity. Normal range of motion. 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 CT head showed i ntermediate right centrum's semiovale culver matter changes and additional appearing in the right mullen radiata of frontal lobe. Prior history of TIA x 2. Patient had right-sided weakness at that time which has been resolved after couple of weeks. Hyperlipidemia Prior history of smoking DVT prophylaxis with heparin subcu Plan: Patient will be continued on aspirin and statins. A1c B12 folate and TSH levels ordered.. Continue with aspirin and Plavix, DAPT for 21 days. Patient had workup including CT head and CTA head and neck was done which showed no significant stenosis. MRI of the brain was ordered to rule out acute CVA or demyelinating disease. Awaiting report. 2D echocardiogram was ordered with bubble study. Patient refused bubble study. Echocardiogram showed ejection fraction 55 to 60%. No significant valvular abnormalities. Continue with neurochecks every 4 hourly. Continue telemonitoring. PT OT and speech therapy evaluation. Follow-up closely. Neurology is on board. Time with Patient: Greater than 30
[2024-01-11 07:50] VITALS: RESP 17; TEMP 98.2
[2024-01-11 08:51] LABS: African American GFR (CKD) >90 (>60 ml/min/1.73 sqM); Anion Gap 7 mmol/L; Blood Urea Nitrogen 28 mg/dL (9-20); Calcium 9.6 mg/dL (8.4-10.2); Carbon Dioxide 26 mmol/L (22-30); Chloride 106 mmol/L (98-107); Glucose 175 mg/dL (74-99); Non-African American GFR(CKD) >90 (>60 ml/min/1.73 sqM); Potassium 4.3 mmol/L (3.5-5.1); Sodium 139 mmol/L (137-145)
--- NOTE | 2024-01-11 11:39 | P.CONS ---
History of Present Illness - Reason for Consult Consult date: 01/11/24 rehab recommendations - Chief Complaint cva - History of Present Illness Patient is a 63-year-old male, , right handed, who lives alone in a 2 story home, [address]. Patient stays on the main level, rents out the upstairs portion. Prior to admission, he was independent with mobility and ADLs, is self employed, drives. Patient with known history of CVA/TIA x 2, prior history of smoking presents to ER with the complaints of left-sided weakness. Patient reported upon waking that his left of the body is weaker compared to right. Patient's symptoms did improve throughout the day but when he woke up the morning of admission, his symptoms got worse which made him to come to the ER. Patient is complaining of left upper and lower extremity weakness. CT head showed intermediate right sylvie trum semiovale culver matter changes additional remote appearing injury right mullen radiata of the frontal lobe. Chest x-ray showed no acute cardiopulmonary process. CT angiogram of the head and neck showed brachiocephalic arteries are widely patent with no significant stenosis. Dual antiplatelet agents for 21 days as per neurology recommendations. MRI of the brain completed. 2D echocardiogram showed ejection fraction 55 to 60% with no significant valve abnormality. Patient refused agitated saline study. PM&R consulted for rehab recommendations. 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 Report for MRI brain still not completed. Currently noting left sided weakness, more in the UE. Is tired, has a history of right shoulder pain. Otherwise denies any issues, denies DACOSTA, CP, SOB, abdominal pain. LBM yesterday. Review of Systems reviewed, negative unless stated above Past Medical History Past Medical History: CVA/TIA History of Any Multi-Drug Resistant Organisms: None Reported Past Surgical History: Tonsillectomy Additional Past Surgical History / Comment(s): Bilateral cataract, Past Anesthesia/Blood Transfusion Reactions: No Reported Reaction Past Psychological History: No Psychological Hx Reported Smoking Status: Former smoker Past Alcohol Use History: None Reported, Daily Past Drug Use History: None Reported Medications and Allergies Home Medications Medication Instructions Recorded Confirmed Type Fish Oil(Unknown Dose) 1 cap PO DAILY 01/07/24 01/07/24 History Garlic(Unknown Dose) 1 cap PO DAILY 01/07/24 01/07/24 History Allergies Allergy/AdvReac Type Severity Reaction Status Date / Time Penicillins Allergy Unknown Verified 01/07/24 11:50 Childhood Physical Exam Vitals: Vital Signs Temp Pulse Resp BP Pulse Ox 01/11/24 07:50 98.2 F 63 17 164/61 97 01/11/24 04:00 97.7 F 58 L 16 138/72 97 01/11/24 00:00 52 L 14 138/77 99 01/10/24 20:00 96.8 F L 62 16 145/83 97 01/10/24 15:49 61 16 139/85 98 Intake and Output 01/10/24 01/11/24 01/11/24 22:59 06:59 14:59 Intake Total 118 118 Balance 118 118 Intake: Oral 118 118 Other: Voiding Method Toilet Weight 68.5 kg General: WDWN, male, NAD Head: Normocephalic, atraumatic. Eyes: Symmetric Ears: Symmetric. Hearing within normal limits. Mouth: Clear. Neck: Supple. Cardiac: Regular rate. Calves supple, non tender, no edema Lungs: Breathing comfortably on RA. Chest symmetric. Abdomen: Soft, nontender. Extremities: Arthritic changes consistent with age. Neurological: Alert and oriented x 4. Speech is clear and fluent without paraphasic errors Cranial nerves: CN II-XII: with mild left facial weakness, decreased shrug Sensation: Intact and symmetrical limbs. Musculoskeletal: ROM WFL MMT UE Sh Abd EE EF FABD WE HG Right 5 5 5 5 5 5 Left 3-4/5 3-4/5 3-4/5 3-4/5 3-4/5 3-4/5 MMT LE HF KE DF EHL Right 5 5 5 5 Left 5 5 5 5 DTR symmetric UE/LE Finger to nose on left decreased; heel to ureña intact bilateral LE. Skin: Skin intact where visible to head, neck, and bilateral upper and lower extremities Psych: Calm, cooperative Results CBC & Chem 7: 01/10/24 07:06 01/11/24 08:01 Labs: Abnormal Lab Results - Last 24 Hours (Table) 01/11/24 Range/Units 08:01 BUN 28 H (9-20) mg/dL Glucose 175 H (74-99) mg/dL Assessment and Plan Assessment: # CVA with intermediate right centrum semiovale culver matter changes additional remote appearing injury right mullen radiata of the frontal lobe -comprehensive therapies- doing well, needing mod I and walker -Statin, ASA, plavix -MRI brain report still pending completion #Left hemiparesis # Ataxia # History of TIA # Pain Management -Pettibone prn, Tylenol prn #DVT Proph -Heparin SQ # Your medical dx and management Dispo: patient is doing well functionally, too high level for IPR requirements. Recommending HHC, if patient feels he cannot be successful at home would recommend [facility]. Patient seen and examined by Dr Estrada, note prepped by Jade Hill PA-C Thank you for consulting our services.
[2024-01-11 11:45] VITALS: BP 172/80; PULSE 68
--- NOTE | 2024-01-11 12:56 | CDI ---
Documentation Clarification Form Date: 01/11/2024 From: Chelita Chaney Phone: [phone] Admit Date: 01/07/2024 10:39:00 AM Patient Name: Ganga Hawk Visit Number: [id number] Discharge Date: ATTENTION: The Clinical Documentation Specialists (CDI) and [facility] Coding Staff appreciate your assistance in clarifying documentation. Please respond to the clarification below the line at the bottom and electronically sign. The CDI & [facility] Coding staff will review the response and follow-up if needed. Please note: Queries are made part of the Legal Health Record. If you have any questions, please contact the author of this message via ITS. Dr. Idania Lacy: Conflicting documentation has been found in the medical record. As attending physician, please provide clarification. 01/08 Neurology PN, Assessment: "Acute right mullen radiata infarct with left hemiparesis." 01/08 IM PN, Assessment: "Subacute right mullen radiata CVA with left-sided hemiparesis." History/Risk Factors: 63-year-old male with a history of TIA who presents with complaints of left sided weakness Clinical Indicators: 01/06 Triage VS: 200/84, 97.9, 71, 18, 98% room air 01/06 CT Brain, Impression: "Indeterminate right centrum semiovale culver matter changes series 201 image 44. Additional remote appearing injury right mullen radiata of the frontal lobe." 01/06 CTA Head and Neck, Impression: "No significant abnormality seen." 01/07 MRI Brain completed, no report available Treatment: Permissive hypertension, Neuro checks [id number], Telemetry Plavix 150mg oral once 01/07 the 75mg oral daily start 01/06 Aspirin 325mg oral daily start 01/07 Norvasc 5mg oral daily start 01/09 Please clarify which diagnosis is most appropriate: [ x ] Acute right mullen radiata infarct with left hemiparesis [ ] Subacute right mullen radiata CVA with left-sided hemiparesis [ ] Other (please specify) [ ] Unable to determine MTDD
--- NOTE | 2024-01-18 09:12 | MR ---
EXAMINATION TYPE: MR brain wo/w con DATE OF EXAM: 01/08/2024 COMPARISON: HISTORY: CVA vs MS CONTRAST: Performed utilizing 7 mL intravenous Gadavist gadolinium contrast. TECHNIQUE: Multiplanar, multiecho imaging on a 3.0 Brenda magnet is performed through the brain. Stud y is performed within 24 hours of arrival to the hospital. The craniovertebral junction is normal. The pituitary is normal. Diffusion-weighted imaging is performed. Hyperintensities are within the right mullen radiata compat ible with acute ischemic areas. These areas are hyperintense on T2 weighted sequences. There are additional multiple bilateral T2 hyperintensities compatible with chronic white matter isch emic changes are present in old lacunar infarct right superior basal ganglion. The superior portion o f this area has some minimal enhancement. Differential diagnosis could include multiple sclerosis maame que. Ventricles and sulci are prominent for the patient age. IMPRESSION: 1. Diffusion hyperintensities right mullen radiata compatible with acute ischemic change. 2. Additional periventricular white matter hyperintensities on T2 and inversion recovery weighted seq uences are nonspecific. Chronic white matter ischemic change, atherosclerosis, vasculitis could be co nsidered. 3. There is a hypointense T1 and hyperintense T2 area right mullen radiata which has a punctate area of enhancement along the superior margin. Differential diagnosis at this location includes lacunar in farct, multiple sclerosis plaque. Follow-up can be performed.
== END 2024-01-11 16:51 | disposition home health service (06) | DRG 65 ==
LOC: EC 08:13 → 3SCARD 10:39
PROVIDERS: ADMIT Internal Medicine; ATTEND Internal Medicine
DX: I63.81 Other cerebral infarction due to occlusion or stenosis of small artery (principal); G81.94 Hemiplegia, unspecified affecting left nondominant side; E78.5 Hyperlipidemia, unspecified; R29.701 NIHSS score 1; R29.810 Facial weakness; R27.0 Ataxia, unspecified; R73.03 Prediabetes; Z79.02 Long term (current) use of antithrombotics/antiplatelets; Z79.82 Long term (current) use of aspirin; Z87.891 Personal history of nicotine dependence; Z88.0 Allergy status to penicillin
CPT/HCPCS: 36415; 70450; 70496; 70498; 70553; 71046; 80048; 80053; 80061; 82550; 82607; 82747; 83036; 84443; 84484; 85025; 85610; 85730; 93005; 93306; 99285

== ENCOUNTER 2024-01-12 10:38 | Observation (INO) | payer BC ==
--- NOTE | 2024-01-12 11:33 | ED ---
Recheck HPI - General Chief Complaint: Recheck/Abnormal Lab/Rx Stated Complaint: Recheck-Weakness Time Seen by Provider: 01/12/24 11:31 Source: patient, RN notes reviewed Mode of arrival: wheelchair Limitations: no limitations - History of Present Illness Initial Comments: Quick Note: This is a 63-year-old male who presents to the emergency department for weakness. Patient was discharged from this facility yesterday after being admitted for a stroke. States that he was too strong to qualify for inpatient physical therapy and discharged home. Since going home he feels very weak and unsafe. He feels like he will fall and be unable to get help. - Related Data Home Medications Medication Instructions Recorded Confirmed Fish Oil(Unknown Dose) 1 cap PO DAILY 01/07/24 01/07/24 Garlic(Unknown Dose) 1 cap PO DAILY 01/07/24 01/07/24 Previous Rx's Medication Instructions Recorded Aspirin 325 mg PO DAILY #21 tab 01/11/24 Atorvastatin [Lipitor] 80 mg PO HS #30 tab 01/11/24 Clopidogrel [Plavix] 75 mg PO DAILY #30 tab 01/11/24 amLODIPine [Norvasc] 5 mg PO DAILY #30 tab 01/11/24 Allergies Allergy/AdvReac Type Severity Reaction Status Date / Time Penicillins Allergy Unknown Verified 01/12/24 11:23 Childhood Review of Systems ROS Statement: Those systems with pertinent positive or pertinent negative responses have been documented in the HPI. ROS Other: All systems not noted in ROS Statement are negative. Past Medical History Past Medical History: CVA/TIA Additional Past Medical History / Comment(s): left sided deficits History of Any Multi-Drug Resistant Organisms: None Reported Past Surgical History: Tonsillectomy Additional Past Surgical History / Comment(s): Bilateral cataract, Past Anesthesia/Blood Transfusion Reactions: No Reported Reaction Past Psychological History: No Psychological Hx Reported Smoking Status: Former smoker Past Alcohol Use History: None Reported, Daily Past Drug Use History: None Reported General Exam - General Exam Comments Initial Comments: Visual Physical Exam Vital signs reviewed General: Well-appearing, nontoxic, no acute distress. Head: Normocephalic, atraumatic Eyes: PERRLA, EOMI ENT: Airway patent Chest: Nonlabored breathing Skin: No visual rash, normal skin tone Neuro: Alert and oriented 3 Musculoskeletal: No gross abnormalities Limitations: no limitations Course Vital Signs 01/12/24 11:21 Temperature 97.7 F Pulse Rate 64 Respiratory 18 Rate Blood Pressure 178/96 O2 Sat by Pulse 98 Oximetry Medical Decision Making - Medical Decision Making I performed the QuickNote portion of this chart. Signed Apoorva Griffiths PA-C. Disposition Referrals: None,Stated [Primary Care Provider] - 1-2 days
[2024-01-12 12:13] LABS: Basophils % (A) 0 %; Eosinophils # (A) 0.1 k/uL (0-0.7); Eosinophils % (A) 2 %; HCT 48.1 % (39.0-53.0); HGB 15.8 gm/dL (13.0-17.5); Lymphocytes # (A) 1.4 k/uL (1.0-4.8); Lymphocytes % (A) 21 %; MCH 32.4 pg (25.0-35.0); MCHC 32.8 g/dL (31.0-37.0); MCV 98.9 fL (80.0-100.0); Mean Platelet Volume 7.8; Monocytes # (A) 0.3 k/uL (0-1.0); Monocytes % (A) 4 %; Neutrophils # (A) 4.9 k/uL (1.3-7.7); Neutrophils % (A) 71 %; Platelet Count 239 k/uL (150-450); RBC 4.86 m/uL (4.30-5.90); RDW 12.5 % (11.5-15.5); WBC 6.9 k/uL (3.8-10.6)
[2024-01-12 12:31] LABS: ALT 66 U/L (4-49); African American GFR (CKD) >90 (>60 ml/min/1.73 sqM); Albumin 4.4 g/dL (3.5-5.0); Anion Gap 6 mmol/L; Blood Urea Nitrogen 24 mg/dL (9-20); Calcium 9.4 mg/dL (8.4-10.2); Carbon Dioxide 24 mmol/L (22-30); Chloride 107 mmol/L (98-107); Glucose 114 mg/dL (74-99); Non-African American GFR(CKD) >90 (>60 ml/min/1.73 sqM); Sodium 137 mmol/L (137-145); Total Protein 7.4 g/dL (6.3-8.2)
[2024-01-12 12:35] LABS: AST 67 U/L (17-59); Alkaline Phosphatase 59 U/L (38-126); Phosphorus 3.7 mg/dL (2.5-4.5)
[2024-01-12 12:40] LABS: Partial Thromboplastin Time 24.5 sec (22.0-30.0)
[2024-01-12 12:48] LABS: Appearance,Urine Clear (Clear); Bilirubin,Urine Negative (Negative); Blood,Urine Negative (Negative); Color,Urine Light Yellow; Glucose,Urine (UA) Negative (Negative); Ketones,Urine Negative (Negative); Leukocyte Esterase,Urine Negative (Negative); Nitrite,Urine Negative (Negative); PH, Urine 5.5 (5.0-8.0); Protein,Urine Negative (Negative); Urobilinogen,Urine <2.0 mg/dL (<2.0)
--- NOTE | 2024-01-12 13:13 | XR ---
EXAMINATION TYPE: XR chest 2V DATE OF EXAM: 01/12/2024 COMPARISON: 01/07/2024 HISTORY: 63-year-old male with weakness TECHNIQUE: PA and lateral views FINDINGS: The cardiomediastinal silhouette, aorta, and pulmonary vasculature are within normal limits. Hyperinf lation. Otherwise, lungs and pleural spaces are clear. IMPRESSION: COPD. No acute process seen.
--- NOTE | 2024-01-12 16:09 | ED ---
General Adult HPI - General Chief complaint: Recheck/Abnormal Lab/Rx Stated complaint: Recheck-Weakness Time Seen by Provider: 01/12/24 11:31 Source: patient, RN notes reviewed, old records reviewed Mode of arrival: wheelchair Limitations: no limitations - History of Present Illness Initial comments: Patient is a 63-year-old male present to the emergency department with concern for weakness. Patient states onset of symptoms was a week ago. Patient was discharged yesterday. Patient has a walker. Patient states he is unable to use the walker and is concerned of falling. Patient states if he falls he is unable to get up on his own. Patient believes he needs placement. Symptoms are not worse since discharge - Related Data Home Medications Medication Instructions Recorded Confirmed Fish Oil(Unknown Dose) 1 cap PO DAILY 01/07/24 01/07/24 Garlic(Unknown Dose) 1 cap PO DAILY 01/07/24 01/07/24 Previous Rx's Medication Instructions Recorded Aspirin 325 mg PO DAILY #21 tab 01/11/24 Atorvastatin [Lipitor] 80 mg PO HS #30 tab 01/11/24 Clopidogrel [Plavix] 75 mg PO DAILY #30 tab 01/11/24 amLODIPine [Norvasc] 5 mg PO DAILY #30 tab 01/11/24 Allergies Allergy/AdvReac Type Severity Reaction Status Date / Time Penicillins Allergy Unknown Verified 01/12/24 11:23 Childhood Review of Systems ROS Statement: Those systems with pertinent positive or pertinent negative responses have been documented in the HPI. ROS Other: All systems not noted in ROS Statement are negative. Constitutional: Denies: fever Eyes: Denies: eye pain ENT: Denies: ear pain Respiratory: Denies: cough Cardiovascular: Denies: chest pain Neurological: Reports: as per HPI, weakness Past Medical History Past Medical History: CVA/TIA Additional Past Medical History / Comment(s): left sided deficits History of Any Multi-Drug Resistant Organisms: None Reported Past Surgical History: Tonsillectomy Additional Past Surgical History / Comment(s): Bilateral cataract, Past Anesthesia/Blood Transfusion Reactions: No Reported Reaction Past Psychological History: No Psychological Hx Reported Smoking Status: Former smoker Past Alcohol Use History: None Reported, Daily Past Drug Use History: None Reported General Exam Limitations: no limitations General appearance: alert, in no apparent distress Head exam: Present: normocephalic Eye exam: Present: normal appearance Neck exam: Present: normal inspection Respiratory exam: Present: normal lung sounds bilaterally Cardiovascular Exam: Present: regular rate, normal rhythm GI/Abdominal exam: Present: soft. Absent: tenderness Extremities exam: Present: normal inspection Neurological exam: Present: alert Expanded Neurological exam: Present: protecting the airway Speech: Present: fluid speech Cranial nerves: EOM's Intact: Normal, Facial Palsy with Forehead Movement: Abnormal Left (Mild left facial weakness that does not involve the forehead) Motor strength exam: RUE: 5, LUE: 2/1, RLE: 5, LLE: 4 Eye Response: (4) open spontaneously Motor Response: (6) obeys commands Verbal Response: (5) oriented Psychiatric exam: Present: normal affect, normal mood Skin exam: Present: normal color Course Vital Signs 01/12/24 01/12/24 11:21 15:34 Temperature 97.7 F Pulse Rate 64 59 L Respiratory 18 16 Rate Blood Pressure 178/96 171/81 O2 Sat by Pulse 98 99 Oximetry EKG Findings - EKG Results: EKG: interpreted by AYAN, sinus rhythm, normal axis, normal QRS, normal ST/T Medical Decision Making - Medical Decision Making Was pt. sent in by a medical professional or institution (, PA, MAIN LINE STATION ENGINEER, urgent care, hospital, or retirement...) When possible be specific @ -No Did you speak to anyone other than the patient for history (EMS, parent, family, police, friend...)? What history was obtained from this source @ -No Did you review nursing and triage notes (agree or disagree)? Why? @ -I reviewed and agree with nursing and triage notes Were old charts reviewed (outside hosp., previous admission, EMS record, old EKG, old radiological studies, urgent care reports/EKG's, retirement records)? Report findings @ -Previous admission reviewed including neuro evaluation and imaging Differential Diagnosis (chest pain, altered mental status, abdominal pain women, abdominal pain men, vaginal bleeding, weakness, fever, dyspnea, syncope, head ache, dizziness, GI bleed, back pain, seizure, CVA, palpatations, mental health, musculoskeletal)? @ -Differential Weakness: Hypoglycemia, shock, sepsis, hyponatremia, anemia, infection, FL, ETOH, adverse medicine reaction, overdose, stroke, this is not meant to be an all-inclusive list. EKG interpreted by me (3pts min.). @ -As above X-rays interpreted by me (1pt min.). @ -Chest x-ray shows no acute process CT interpreted by me (1pt min.). @ -None done U/S interpreted by me (1pt. min.). @ -None done What testing was considered but not performed or refused? (CT, X-rays, U/S, labs)? Why? @ -None What meds were considered but not given or refused? Why? @ -None Did you discuss the management of the patient with other professionals (professionals i.e. , PA, MAIN LINE STATION ENGINEER, lab, RT, psych nurse, delinquency prevention social worker, business services officer, teacher, logistics supply officer, case specialist)? Give summary @ -Case discussed with practitioner Francine, mony Givens, who will admit covering the recent admission Was smoking cessation discussed for >3mins.? @ -No Was critical care preformed (if so, how long)? @ -No Were there social determinants of health that impacted care today? How? (Homelessness, low income, unemployed, alcoholism, drug addiction, transportation, low edu. Level, literacy, decrease access to med. care, skilled nursing, rehab)? @ -No Was there de-escalation of care discussed even if they declined (Discuss DNR or withdrawal of care, Hospice)? DNR status @ -No What co-morbidities impacted this encounter? (DM, HTN, Smoking, COPD, CAD, Cancer, CVA, ARF, Chemo, Hep., AIDS, mental health diagnosis, sleep apnea, morbid obesity)? @ -None Was patient admitted / discharged? Hospital course, mention meds given and route, prescriptions, significant lab abnormalities, going to OR and other pertinent info. @ -Patient presents with recent stroke and discharged. Patient unable to take care of himself at home. Patient would like to be readmitted for evaluation for placement Undiagnosed new problem with uncertain prognosis? @ -No Drug Therapy requiring intensive monitoring for toxicity (Heparin, Nitro, Ins ulin, Cardizem)? @ -No Were any procedures done? @ -No Diagnosis/symptom? @ -CVA Acute, or Chronic, or Acute on Chronic? @ -Acute temic symptoms) or Complicated (systemic symptoms)? @ -Default Side effects of treatment? @ -No Exacerbation, Progression, or Severe Exacerbation? @ -No Poses a threat to life or bodily function? How? (Chest pain, USA, FL, pneumonia, PE, COPD, DKA, ARF, appy, cholecystitis, CVA, Diverticulitis, Homicidal, Suicidal, threat to staff... and all critical care pts) @ -No - Lab Data Result diagrams: 01/12/24 12:04 01/12/24 12:04 Lab Results 01/12/24 01/12/24 01/12/24 Range/Units 12:04 12:04 12:04 WBC 6.9 (3.8-10.6) k/uL RBC 4.86 (4.30-5.90) m/uL Hgb 15.8 (13.0-17.5) gm/dL Hct 48.1 (39.0-53.0) % MCV 98.9 (80.0-100.0) fL MCH 32.4 (25.0-35.0) pg MCHC 32.8 (31.0-37.0) g/dL RDW 12.5 (11.5-15.5) % Plt Count 239 (150-450) k/uL MPV 7.8 Neutrophils % 71 % Lymphocytes % 21 % Monocytes % 4 % Eosinophils % 2 % Basophils % 0 % Neutrophils # 4.9 (1.3-7.7) k/uL Lymphocytes # 1.4 (1.0-4.8) k/uL Monocytes # 0.3 (0-1.0) k/uL Eosinophils # 0.1 (0-0.7) k/uL Basophils # 0.0 (0-0.2) k/uL PT 11.0 (10.0-12.5) sec INR 1.0 (<1.2) APTT 24.5 (22.0-30.0) sec Sodium 137 (137-145) mmol/L Potassium (3.5-5.1) mmol/L Chloride 107 (98-107) mmol/L Carbon Dioxide 24 (22-30) mmol/L Anion Gap 6 mmol/L BUN 24 H (9-20) mg/dL Creatinine 0.71 (0.66-1.25) mg/dL Est GFR (CKD-EPI)AfAm >90 (>60 ml/min/1.73 sqM) Est GFR (CKD-EPI)NonAf >90 (>60 ml/min/1.73 sqM) Glucose 114 H (74-99) mg/dL Plasma Lactic Acid Shoaib (0.7-2.0) mmol/L Calcium 9.4 (8.4-10.2) mg/dL Phosphorus 3.7 (2.5-4.5) mg/dL Magnesium 2.0 (1.6-2.3) mg/dL Total Bilirubin 1.0 (0.2-1.3) mg/dL AST 67 H (17-59) U/L ALT 66 H (4-49) U/L Alkaline Phosphatase 59 (38-126) U/L Troponin I (0.000-0.034) ng/mL Total Protein 7.4 (6.3-8.2) g/dL Albumin 4.4 (3.5-5.0) g/dL Urine Color Urine Appearance (Clear) Urine pH (5.0-8.0) Ur Specific [place] (1.001-1.035) Urine Protein (Negative) Urine Glucose (UA) (Negative) Urine Ketones (Negative) Urine Blood (Negative) Urine Nitrite (Negative) Urine Bilirubin (Negative) Urine Urobilinogen (<2.0) mg/dL Ur Leukocyte Esterase (Negative) 01/12/24 01/12/24 01/12/24 Range/Units 12:04 12:04 12:20 WBC (3.8-10.6) k/uL RBC (4.30-5.90) m/uL Hgb (13.0-17.5) gm/dL Hct (39.0-53.0) % MCV (80.0-100.0) fL MCH (25.0-35.0) pg MCHC (31.0-37.0) g/dL RDW (11.5-15.5) % Plt Count (150-450) k/uL MPV Neutrophils % % Lymphocytes % % Monocytes % % Eosinophils % % Basophils % % Neutrophils # (1.3-7.7) k/uL Lymphocytes # (1.0-4.8) k/uL Monocytes # (0-1.0) k/uL Eosinophils # (0-0.7) k/uL Basophils # (0-0.2) k/uL PT (10.0-12.5) sec INR (<1.2) APTT (22.0-30.0) sec Sodium (137-145) mmol/L Potassium (3.5-5.1) mmol/L Chloride (98-107) mmol/L Carbon Dioxide (22-30) mmol/L Anion Gap mmol/L BUN (9-20) mg/dL Creatinine (0.66-1.25) mg/dL Est GFR (CKD-EPI)AfAm (>60 ml/min/1.73 sqM) Est GFR (CKD-EPI)NonAf (>60 ml/min/1.73 sqM) Glucose (74-99) mg/dL Plasma Lactic Acid Shoaib 1.6 (0.7-2.0) mmol/L Calcium (8.4-10.2) mg/dL Phosphorus (2.5-4.5) mg/dL Magnesium (1.6-2.3) mg/dL Total Bilirubin (0.2-1.3) mg/dL AST (17-59) U/L ALT (4-49) U/L Alkaline Phosphatase (38-126) U/L Troponin I <0.012 (0.000-0.034) ng/mL Total Protein (6.3-8.2) g/dL Albumin (3.5-5.0) g/dL Urine Color Light Yellow Urine Appearance Clear (Clear) Urine pH 5.5 (5.0-8.0) Ur Specific [place] 1.020 (1.001-1.035) Urine Protein Negative (Negative) Urine Glucose (UA) Negative (Negative) Urine Ketones Negative (Negative) Urine Blood Negative (Negative) Urine Nitrite Negative (Negative) Urine Bilirubin Negative (Negative) Urine Urobilinogen <2.0 (<2.0) mg/dL Ur Leukocyte Esterase Negative (Negative) Disposition Clinical Impression: Cerebrovascular accident (CVA) Disposition: ADMITTED IP TO THIS HOSP Is patient prescribed a controlled substance at d/c from ED?: No Referrals: None,Stated [Primary Care Provider] - 1-2 days Time of Disposition: 16:45
[2024-01-12] MEDS ORDERED: NALOXONE 0.4 MG/ML 1 ML VIAL IV PRN (16:46)
[2024-01-12] MEDS: ATORVASTATIN 80 MG TAB PO SCH (21:43)
[2024-01-13] MEDS: CLOPIDOGREL 75 MG TAB PO SCH (08:36)
[2024-01-13] MEDS: ASPIRIN 325 MG TAB PO SCH (08:36)
[2024-01-13] MEDS: amLODIPine 5 MG TAB PO SCH (08:36)
[2024-01-13] MEDS ORDERED: GARLIC PO SCH (09:00)
[2024-01-13] MEDS ORDERED: FISH OIL PO SCH (09:00)
--- NOTE | 2024-01-13 11:54 | P.HPIM ---
History of Present Illness H&P Date: 01/13/24 History of present illness; 63-year-old man presented to the emergency department on 01/11 with feelings of weakness of his left side, to the point where he does not feel stable and feels unsafe being on his own. He states he has minimal function of his left upper extremity, with an inability to grasp and squeeze well. Additionally, he notes his left lower extremity was beginning to show signs of getting weaker. His past medical history is significant for CVA, for which she was released from this facility on 01/10 and two previous TIAs, one 14 years ago and one 4 years ago. He had initially presented to the emergency department with complaints of left-sided weakness of both the upper and lower extremity, which have progressively gotten worse prior to him deciding to come to the emergency department. At that time he denies facial deviation, facial droop, slurred speech, difficulty finding words, numbness or tingling, shoulder/neck pain, and no complaints of previous headache. While in the hospital at that time he had a CT of the head which showed intermediate right centrum semioval culver matter changes as well as remote appearing injury to the right mullen radiata of the frontal lobe. CT angiogram of the head and neck at that time showed brachiocephalic arteries are widely patent with no significant stenosis. During his stay, PT/OT were comfortable discharging the patient home with instructions to follow-up with his PCP to schedule outpatient PT, the patient states he was unable to do that and he currently feels unsteady/unsafe being at home, because [place]. Initial lab work done in the ER showed an AST of 67, and ALT of 66, glucose of 114, BUN of 24 EKG done in the ER showed heart rate of 63, no ST segment elevation or dep ression seen, no T-wave inversions seen in normal sinus rhythm. Chest x-ray done in the ER showed no acute process. CT head done during his previous visit on 01/06 showed intermediate right centrum semioval culver matter changes as well as remote appearing injury to the right mullen radiata of frontal lobe. CTA head and neck done during his previous visit on 01/06 showed brachiocephalic arteries are widely patent with no significant stenosis. Patient admitted to internal medicine service REVIEW OF SYSTEMS: CONSTITUTIONAL: No fever, no malaise, no fatigue. HEENT: No recent visual problems or hearing problems. Denied any sore throat. CARDIOVASCULAR: No chest pain, orthopnea, PND, no palpitations, no syncope. PULMONARY: No shortness of breath, no cough, no hemoptysis. GASTROINTESTINAL: No diarrhea, no nausea, no vomiting, no abdominal pain. NEUROLOGICAL: No headaches, no numbness, weakness noted in the left upper and lower extremity. HEMATOLOGICAL: Denies any bleeding or petechiae. GENITOURINARY: Denies any burning micturition, frequency, or urgency. MUSCULOSKELETAL/RHEUMATOLOGICAL: Denies any joint pain, swelling, or any muscle pain. ENDOCRINE: Denies any polyuria or polydipsia. The rest of the 14-point review of systems is negative. PHYSICAL EXAMINATION: GENERAL: The patient is alert and oriented x3, not in any acute distress. Well developed, well nourished. HEENT: Pupils are round and equally reacting to light. EOMI. No scleral icterus. No conjunctival pallor. Normocephalic, atraumatic. No pharyngeal erythema. No thyromegaly. CARDIOVASCULAR: S1 and S2 present. No murmurs, rubs, or gallops. PULMONARY: Chest is clear to auscultation, no wheezing or crackles. ABDOMEN: Soft, nontender, nondistended, normoactive bowel sounds. No palpable organomegaly. MUSCULOSKELETAL: No joint swelling or deformity. Strength in left upper extremity 3/5, strength in left lower extremity 4/5. EXTREMITIES: No cyanosis, clubbing, or pedal edema. NEUROLOGICAL: Left-sided hemiparalysis, left upper extremity more so than lower extremity. SKIN: No rashes. Assessment and plan 1. Acute right mullen radiata infarct with left-sided hemiparesis CTA of the head and neck showed no significant abnormalities. 2D echo completed which ruled out PFO. Patient continues to have worsening left upper and lower extremity function. States that it has continued to get worse. During previous stay PT/OT discharge to home with request to follow-up with PCP to get PT order to the patient was unable to do; PT/OT referral. Currently taking Plavix 75 mg daily 2. Hereditary hyperlipidemia Patient states he was told he has hyperlipidemia his genetic, he has taken statins before and they do not affect his cholesterol in any way Patient states he takes garlic and fish oil supplements at home Patient will continue to refuse Lipitor, as he states it does not work for him Labs completed during previous stay on 01/07 showed triglycerides 153, cholesterol of 300, LDL cholesterol of 210.2 3. Hypertension Currently taking Norvasc 5 mg Decreasing Norvasc to 2.5 mg daily, more comfortable control for patients with history of CVA Monitor vital signs Labs and medication were reviewed. Continue with symptomatic treatment. Resume home medication. Monitor labs and vitals. DVT and GI prophylaxis. Further recommendations as per clinical course of the patient Dictation was produced using [employer] dictation software. please excuse any grammatical, word or spelling errors. Past Medical History Past Medical History: CVA/TIA Additional Past Medical History / Comment(s): left sided deficits History of Any Multi-Drug Resistant Organisms: None Reported Past Surgical History: Tonsillectomy Additional Past Surgical History / Comment(s): Bilateral cataract, Past Anesthesia/Blood Transfusion Reactions: No Reported Reaction Past Psychological History: No Psychological Hx Reported Smoking Status: Former smoker Past Alcohol Use History: None Reported, Daily Past Drug Use History: None Reported Medications and Allergies Home Medications Medication Instructions Recorded Confirmed Type Fish Oil(Unknown Dose) 1 cap PO DAILY 01/07/24 01/12/24 History Garlic(Unknown Dose) 1 cap PO DAILY 01/07/24 01/12/24 History Aspirin 325 mg PO DAILY #21 tab 01/11/24 01/12/24 Rx Atorvastatin [Lipitor] 80 mg PO HS #30 tab 01/11/24 01/12/24 Rx Clopidogrel [Plavix] 75 mg PO DAILY #30 tab 01/11/24 01/12/24 Rx amLODIPine [Norvasc] 5 mg PO DAILY #30 tab 01/11/24 01/12/24 Rx Allergies Allergy/AdvReac Type Severity Reaction Status Date / Time Penicillins Allergy Unknown Verified 01/12/24 17:07 Childhood Physical Exam Vitals: Vital Signs Temp Pulse Pulse Resp BP BP Pulse Ox 01/13/24 07:25 97.9 F 59 L 15 157/80 100 01/13/24 07:00 50 L 14 117/68 96 01/13/24 05:00 51 L 13 122/72 95 01/13/24 02:00 50 L 14 113/69 95 01/12/24 23:25 54 L 20 142/74 94 L 01/12/24 21:01 56 L 16 139/74 100 01/12/24 19:38 53 L 20 139/79 100 01/12/24 18:11 57 L 16 159/77 100 01/12/24 15:34 59 L 16 171/81 99 01/12/24 11:21 97.7 F 64 18 178/96 98 Results CBC & Chem 7: 01/12/24 12:04 01/12/24 12:04 Labs: Abnormal Lab Results - Last 24 Hours (Table) 01/12/24 Range/Units 12:04 BUN 24 H (9-20) mg/dL Glucose 114 H (74-99) mg/dL AST 67 H (17-59) U/L ALT 66 H (4-49) U/L
[2024-01-14] MEDS: ACETAMINOPHEN TAB 325 MG TAB PO PRN (06:44)
[2024-01-14] MEDS: amLODIPine 2.5 MG TAB PO SCH (09:25)
--- NOTE | 2024-01-14 14:04 | P.PN ---
Subjective Progress Note Date: 01/14/24 63-year-old man presented to the emergency department on 01/11 with feelings of weakness of his left side, to the point where he does not feel stable and feels unsafe being on his own. He states he has minimal function of his left upper extremity, with an inability to grasp and squeeze well. Additionally, he notes his left lower extremity was beginning to show signs of getting weaker. His past medical history is significant for CVA, for which she was released from this facility on 01/10 and two previous TIAs, one 14 years ago and one 4 years ago. He had initially presented to the emergency department with complaints of left-sided weakness of both the upper and lower extremity, which have progress ively gotten worse prior to him deciding to come to the emergency department. At that time he denies facial deviation, facial droop, slurred speech, difficulty finding words, numbness or tingling, shoulder/neck pain, and no complaints of previous headache. While in the hospital at that time he had a CT of the head which showed intermediate right centrum semioval culver matter changes as well as remote appearing injury to the right mullen radiata of the frontal lobe. CT angiogram of the head and neck at that time showed brachiocephalic arteries are widely patent with no significant stenosis. During his stay, PT/OT were comfortable discharging the patient home with instructions to follow-up with his PCP to schedule outpatient PT, the patient states he was unable to do that and he currently feels unsteady/unsafe being at home, because [place]. Initial lab work done in the ER showed an AST of 67, and ALT of 66, glucose of 114, BUN of 24 EKG done in the ER showed heart rate of 63, no ST segment elevation or depression seen, no T-wave inversions seen in normal sinus rhythm. Chest x-ray done in the ER showed no acute process. CT head done during his previous visit on 01/06 showed intermediate right centrum semioval culver matter changes as well as remote appearing injury to the right mullen radiata of frontal lobe. CTA head and neck done during his previous visit on 01/06 showed brachiocephalic arteries are widely patent with no significant stenosis. 01/13 - patient seen at bedside today. Patient appears well and has no current complaints. Was seen by PT and OT yesterday, both of which recommending discharge to inpatient rehab. He remains very motivated to be discharged to inpatient rehab to regain some, if not most of the function he previously had to give him the comfort living on his own. He currently has no complaints. Await ing insurance process to place him in inpatient rehab. REVIEW OF SYSTEMS: CONSTITUTIONAL: No fever, no malaise,. CARDIOVASCULAR: No chest pain, no palpitations, no syncope. PULMONARY: No shortness of breath, no cough, GASTROINTESTINAL: No diarrhea, no nausea, no vomiting, no abdominal pain. NEUROLOGICAL: No headaches, no weakness, PHYSICAL EXAMINATION: GENERAL: The patient is alert and oriented x3, not in any acute distress. Well developed, well nourished. HEENT: Pupils are round and equally reacting to light. EOMI. No scleral icterus. No conjunctival pallor. Normocephalic, atraumatic. No pharyngeal erythema. No thyromegaly. CARDIOVASCULAR: S1 and S2 present. No murmurs, rubs, or gallops. PULMONARY: Chest is clear to auscultation, no wheezing or crackles. ABDOMEN: Soft, nontender, nondistended, normoactive bowel sounds. No palpable organomegaly. MUSCULOSKELETAL: No joint swelling or deformity. EXTREMITIES: No cyanosis, clubbing, or pedal edema. NEUROLOGICAL: Gross neurological examination did not reveal any focal deficits. Awake, alert, oriented x3. SKIN: No rashes. Assessment and plan 1. Acute right mullen radiata infarct with left-sided hemiparesis CTA of the head and neck showed no significant abnormalities. 2D echo completed which ruled out PFO. Patient continues to have worsening left upper and lower extremity function. States that it has continued to get worse. Seen by PT and OT, both services recommending discharge to inpatient rehab. Currently taking Plavix 75 mg daily 2. Hereditary hyperlipidemia Patient states he was told he has hyperlipidemia his genetic, he has taken statins before and they do not affect his cholesterol in any way Patient states he takes garlic and fish oil supplements at home Patient will continue to refuse Lipitor, as he states it does not work for him Labs completed during previous stay on 01/07 showed triglycerides 153, cholesterol of 300, LDL cholesterol of 210.2 3. Hypertension Currently taking Norvasc 5 mg Decreasing Norvasc to 2.5 mg daily, more comfortable control for patients with history of CVA Labs and medication were reviewed. Continue with symptomatic treatment. Resume home medication. Monitor labs and vitals. DVT and GI prophylaxis. Further recommendations as per clinical course of the patient Dictation was produced using [employer] dictation software. please excuse any grammatical, word or spelling errors. Objective - Vital Signs Vital signs: Vital Signs Temp 98.2 F 01/14/24 07:00 Pulse 55 L 01/14/24 07:00 Resp 16 01/14/24 07:00 BP 145/77 01/14/24 07:00 Pulse Ox 98 01/14/24 07:00 FiO2 Intake & Output 01/13/24 01/14/24 01/14/24 18:59 06:59 18:59 Intake Total 518 591 Balance 518 591 Weight 68.492 kg Intake: Oral 518 591 Other: # Voids 2 2 - Labs CBC & Chem 7: 01/12/24 12:04 01/12/24 12:04
[2024-01-14] MEDS: CALCIUM CARBONATE 500 MG CHEWABLE PO PRN (17:43)
--- NOTE | 2024-01-15 12:44 | P.PN ---
Subjective Progress Note Date: 01/15/24 63-year-old man presented to the emergency department on 01/11 with feelings of weakness of his left side, to the point where he does not feel stable and feels unsafe being on his own. He states he has minimal function of his left upper extremity, with an inability to grasp and squeeze well. Additionally, he notes his left lower extremity was beginning to show signs of getting weaker. His past medical history is significant for CVA, for which she was released from this facility on 01/10 and two previous TIAs, one 14 years ago and one 4 years ago. He had initially presented to the emergency department with complaints of left-sided weakness of both the upper and lower extremity, which have progress ively gotten worse prior to him deciding to come to the emergency department. At that time he denies facial deviation, facial droop, slurred speech, difficulty finding words, numbness or tingling, shoulder/neck pain, and no complaints of previous headache. While in the hospital at that time he had a CT of the head which showed intermediate right centrum semioval culver matter changes as well as remote appearing injury to the right mullen radiata of the frontal lobe. CT angiogram of the head and neck at that time showed brachiocephalic arteries are widely patent with no significant stenosis. During his stay, PT/OT were comfortable discharging the patient home with instructions to follow-up with his PCP to schedule outpatient PT, the patient states he was unable to do that and he currently feels unsteady/unsafe being at home, because [place] Initial lab work done in the ER showed an AST of 67, and ALT of 66, glucose of 114, BUN of 24 EKG done in the ER showed heart rate of 63, no ST segment elevation or depression seen, no T-wave inversions seen in normal sinus rhythm. Chest x-ray done in the ER showed no acute process. CT head done during his previous visit on 01/06 showed intermediate right centrum semioval culver matter changes as well as remote appearing injury to the right mullen radiata of frontal lobe. CTA head and neck done during his previous visit on 01/06 showed brachiocephalic arteries are widely patent with no significant stenosis. 01/13 - patient seen at bedside today. Patient appears well and has no current complaints. Was seen by PT and OT yesterday, both of which recommending discharge to inpatient rehab. He remains very motivated to be discharged to inpatient rehab to regain some, if not most of the function he previously had to give him the comfort living on his own. He currently has no complaints. Await ing insurance process to place him in inpatient rehab. 01/14 - Patient seen at bedside today. Patient appears well and has no current complaints. Waiting for placement at inpatient rehab at [facility], the process of which is currently underway. Continues to see PT and OT while awaiting. REVIEW OF SYSTEMS: CONSTITUTIONAL: No fever, no malaise,. CARDIOVASCULAR: No chest pain, no palpitations, no syncope. PULMONARY: No shortness of breath, no cough, GASTROINTESTINAL: No diarrhea, no nausea, no vomiting, no abdominal pain. NEUROLOGICAL: No headaches, no weakness, PHYSICAL EXAMINATION: GENERAL: The patient is alert and oriented x3, not in any acute distress. Well developed, well nourished. HEENT: Pupils are round and equally reacting to light. EOMI. No scleral icterus. No conjunctival pallor. Normocephalic, atraumatic. No pharyngeal erythema. No thyromegaly. CARDIOVASCULAR: S1 and S2 present. No murmurs, rubs, or gallops. PULMONARY: Chest is clear to auscultation, no wheezing or crackles. ABDOMEN: Soft, nontender, nondistended, normoactive bowel sounds. No palpable or ganomegaly. MUSCULOSKELETAL: No joint swelling or deformity. EXTREMITIES: No cyanosis, clubbing, or pedal edema. NEUROLOGICAL: Gross neurological examination did not reveal any focal deficits. Awake, alert, oriented x3. SKIN: No rashes. Assessment and plan 1. Acute right mullen radiata infarct with left-sided hemiparesis CTA of the head and neck showed no significant abnormalities. 2D echo completed which ruled out PFO. Patient continues to have worsening left upper and lower extremity function. States that it has continued to get worse. Seen by PT and OT, both services recommending discharge to inpatient rehab. Currently taking Plavix 75 mg daily 2. Hereditary hyperlipidemia Patient states he was told he has hyperlipidemia his genetic, he has taken statins before and they do not affect his cholesterol in any way Patient states he takes garlic and fish oil supplements at home Patient will continue to refuse Lipitor, as he states it does not work for him Labs completed during previous stay on 01/07 showed triglycerides 153, cholesterol of 300, LDL cholesterol of 210.2 3. Hypertension Currently taking Norvasc 5 mg Decreasing Norvasc to 2.5 mg daily, more comfortable control for patients with history of CVA Labs and medication were reviewed. Continue with symptomatic treatment. Resume home medication. Monitor labs and vitals. DVT and GI prophylaxis. Further recommendations as per clinical course of the patient Dictation was produced using [employer] dictation software. please excuse any grammatical, word or spelling errors. Objective - Vital Signs Vital signs: Vital Signs Temp 97.5 F L 01/15/24 07:00 Pulse 66 01/15/24 07:00 Resp 16 01/15/24 07:00 BP 138/84 01/15/24 07:00 Pulse Ox 99 01/15/24 07:00 FiO2 Intake & Output 01/14/24 01/15/24 01/15/24 18:59 06:59 18:59 Intake Total 1182 Balance 1182 Intake: Oral 1182 Other: Voiding Method Toilet Toilet Urinal Urinal # Voids 2 1 - Labs CBC & Chem 7: 01/12/24 12:04 01/12/24 12:04
--- NOTE | 2024-01-16 11:09 | P.PN ---
Subjective Progress Note Date: 01/16/24 63-year-old man presented to the emergency department on 01/11 with feelings of weakness of his left side, to the point where he does not feel stable and feels unsafe being on his own. He states he has minimal function of his left upper extremity, with an inability to grasp and squeeze well. Additionally, he notes his left lower extremity was beginning to show signs of getting weaker. His past medical history is significant for CVA, for which she was released from this facility on 01/10 and two previous TIAs, one 14 years ago and one 4 years ago. He had initially presented to the emergency department with complaints of left-sided weakness of both the upper and lower extremity, which have progress ively gotten worse prior to him deciding to come to the emergency department. At that time he denies facial deviation, facial droop, slurred speech, difficulty finding words, numbness or tingling, shoulder/neck pain, and no complaints of previous headache. While in the hospital at that time he had a CT of the head which showed intermediate right centrum semioval culver matter changes as well as remote appearing injury to the right mullen radiata of the frontal lobe. CT angiogram of the head and neck at that time showed brachiocephalic arteries are widely patent with no significant stenosis. During his stay, PT/OT were comfortable discharging the patient home with instructions to follow-up with his PCP to schedule outpatient PT, the patient states he was unable to do that and he currently feels unsteady/unsafe being at home, because [place] Initial lab work done in the ER showed an AST of 67, and ALT of 66, glucose of 114, BUN of 24 EKG done in the ER showed heart rate of 63, no ST segment elevation or depression seen, no T-wave inversions seen in normal sinus rhythm. Chest x-ray done in the ER showed no acute process. CT head done during his previous visit on 01/06 showed intermediate right centrum semioval culver matter changes as well as remote appearing injury to the right mullen radiata of frontal lobe. CTA head and neck done during his previous visit on 01/06 showed brachiocephalic arteries are widely patent with no significant stenosis. 01/13 - patient seen at bedside today. Patient appears well and has no current complaints. Was seen by PT and OT yesterday, both of which recommending discharge to inpatient rehab. He remains very motivated to be discharged to inpatient rehab to regain some, if not most of the function he previously had to give him the comfort living on his own. He currently has no complaints. Await ing insurance process to place him in inpatient rehab. 01/14 - Patient seen at bedside today. Patient appears well and has no current complaints. Waiting for placement at inpatient rehab at [facility], the process of which is currently underway. Continues to see PT and OT while awaiting. 01/15 - Patient seen at bedside today. Patient appears well and has no current complaints. Was informed late in the day yesterday that he has been approved for placement at [facility] inpatient rehab, however they will be able to take him until Thursday. REVIEW OF SYSTEMS: CONSTITUTIONAL: No fever, no malaise,. CARDIOVASCULAR: No chest pain, no palpitations, no syncope. PULMONARY: No shortness of breath, no cough, GASTROINTESTINAL: No diarrhea, no nausea, no vomiting, no abdominal pain. NEUROLOGICAL: No headaches, weakness noted in the left upper and lower extremity. PHYSICAL EXAMINATION: GENERAL: The patient is alert and oriented x3, not in any acute distress. Well developed, well nourished. HEENT: Pupils are round and equally reacting to light. EOMI. No scleral icterus. No conjunctival pallor. Normocephalic, atraumatic. No pharyngeal erythema. No thyromegaly. CARDIOVASCULAR: S1 and S2 present. No murmurs, rubs, or gallops. PULMONARY: Chest is clear to auscultation, no wheezing or crackles. ABDOMEN: Soft, nontender, nondistended, normoactive bowel sounds. No palpable organomegaly. MUSCULOSKELETAL: No joint swelling or deformity. Strength in left upper extremity 3/5, strength in left lower extremity 4/5. EXTREMITIES: No cyanosis, clubbing, or pedal edema. NEUROLOGICAL: Left-sided hemiparalysis, left upper extremity more so than lower extremity. SKIN: No rashes. Assessment and plan 1. Acute right mullen radiata infarct with left-sided hemiparesis CTA of the head and neck showed no significant abnormalities. 2D echo completed which ruled out PFO. Patient continues to have worsening left upper and lower extremity function. States that it has continued to get worse. Seen by PT and OT, both services recommending discharge to inpatient rehab. Currently taking Plavix 75 mg daily 2. Hereditary hyperlipidemia Patient states he was told he has hyperlipidemia his genetic, he has taken statins before and they do not affect his cholesterol in any way Patient states he takes garlic and fish oil supplements at home Patient will continue to refuse Lipitor, as he states it does not work for him Labs completed during previous stay on 01/07 showed triglycerides 153, cholesterol of 300, LDL cholesterol of 210.2 3. Hypertension Currently taking Norvasc 5 mg Decreasing Norvasc to 2.5 mg daily, more comfortable control for patients with history of CVA Labs and medication were reviewed. Continue with symptomatic treatment. Resume home medication. Monitor labs and vitals. DVT and GI prophylaxis. Further recommendations as per clinical course of the patient Dictation was produced using [employer] dictation software. please excuse any grammatical, word or spelling errors. Objective - Vital Signs Vital signs: Vital Signs Temp 98.6 F 01/16/24 01:54 Pulse 48 L 01/16/24 01:54 Resp 16 01/16/24 01:54 BP 146/80 01/16/24 01:54 Pulse Ox 98 01/16/24 01:54 FiO2 Intake & Output 01/15/24 01/16/24 01/16/24 18:59 06:59 18:59 Intake Total 236 Balance 236 Intake: Oral 236 Other: Voiding Method Toilet Toilet Urinal # Voids 3 1 - Labs CBC & Chem 7: 01/12/24 12:04 01/12/24 12:04
--- NOTE | 2024-01-17 16:29 | P.PN ---
Subjective Progress Note Date: 01/17/24 Patient is evaluated in follow up today on the medical floor. Continues to report left hemiparesis has very minimal contamination consultant strength and essentially unable to use his left arm/hand. He does report feeling congested and watery eyes; Patient is not having any shortness of breawth, or chest pain. Hemodynamically he is stable. He continues on plavix for primary stroke prevention, refusing statin therapy. He will be given DVT prophylaxais with subcutaneous heparin while in the hospital. Review of Systems Constitutional: Denied any fatigue denied any fever. Cardio vascular: denied any chest pain, palpitations Gastrointestinal: denied any nausea, vomiting, diarrhea Pulmonary: Denied any shortness of breath cough Neurologic denied any new focal deficits: continues to report left sided weakness. All inpatient medications were reviewed and appropriate changes in these medications as dictated in the interval history and assessment and plan. PHYSICAL EXAMINATION: GENERAL: The patient is alert and oriented x3, not in any acute distress. Well developed, well nourished. HEENT: Pupils are round and equally reacting to light. EOMI. No scleral icterus. No conjunctival pallor. Normocephalic, atraumatic. No pharyngeal erythema. No thyromegaly. CARDIOVASCULAR: S1 and S2 present. No murmurs, rubs, or gallops. PULMONARY: Chest is clear to auscultation, no wheezing or crackles. ABDOMEN: Soft, nontender, nondistended, normoactive bowel sounds. No palpable organomegaly. MUSCULOSKELETAL: No joint swelling or deformity. EXTREMITIES: No cyanosis, clubbing, or pedal edema. NEUROLOGICAL: Left hemiparesis SKIN: No rashes. Assessment and Plan Acute ischemic stroke right mullen radiata with left sided hemiparesis Sinus bradycardia Hyperlipidemia Hypertension Allergic rhinitis Former tobacco use Alcohol use disorder DVT prophylaxis: Subcutaneous heparin Full Code Plan Patient is continued on plavix 75 mg daily for primary stroke prevention Continues to refuse statin therapy Patient continues on decreased dose of amlodipine 2.5 mg daily Recommend to add pepcid 20 mg daily for GI prophylaxis Add claritin 5 mg daily for allergy symptoms patient states he takes eliseo -D 24 hour daily at home Patient is pending discharge to [facility] inpatient rehabilitation and will likely be discharged in the next 24 hours. The impression and plan of care has been dictated by Leslie Jj, Nurse Practitioner as directed. Dr. Walter MD I have performed a history and physical examination and medical decision making of this patient, discussed the same with the dictator, and agree with the dictators assessment and plan as written, documented as a scribe. Based on total visit time, I have performed more than 50% of this visit. Objective - Vital Signs Vital signs: Vital Signs Temp 97.9 F 01/17/24 07:00 Pulse 54 L 01/17/24 07:00 Resp 16 01/17/24 07:00 BP 128/74 01/17/24 07:00 Pulse Ox 99 01/17/24 07:00 FiO2 Intake & Output 01/16/24 01/17/24 01/17/24 18:59 06:59 18:59 Intake Total 1200 600 Balance 1200 600 Intake: Oral 1200 600 Other: Voiding Method Toilet Toilet # Voids 1 1 1 # Bowel Movements 1 - Labs CBC & Chem 7: 01/12/24 12:04 01/12/24 12:04 Assessment and Plan Time with Patient: Less than 30
[2024-01-17] MEDS: LORATADINE 10 MG TAB PO SCH (16:49)
[2024-01-17] MEDS: HEPARIN SODIUM,PORCINE 5,000 UNIT/ML 1 ML VIAL SQ SCH (20:13)
--- NOTE | 2024-01-17 22:19 | P.CONS ---
History of Present Illness - Reason for Consult Consult date: 01/15/24 - History of Present Illness Ganga is a 63-year-old right handed man who lives alone in a 2 store home with 7 steps to enter. Bedroom is on the main floor. He does not have any family nearby that are available to help him. He was previously independent with all ADLs, including advanced ADLs of driving and cutting his own grass. He was working as a [employer]. He presented to the emergency department on 01/11 with feelings of left sided weakness. He does have previous CVA which affected his right side he states. Chest x-ray done was negative. CT head done during his previous visit on 01/06 showed intermediate right centrum semioval culver matter changes as well as remote appearing injury to the right umllen radiata of frontal lobe. CTA head and neck done during his previous visit on 01/06 showed brachiocephalic arteries are widely patent with no significant stenosis. 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 He denies any pain in his left arm. Denies any c/p or sob. He has been working with therapy, ambulating 150 ft min A with RW. Past Medical History Past Medical History: CVA/TIA Additional Past Medical History / Comment(s): left-sided deficits History of Any Multi-Drug Resistant Organisms: None Reported Past Surgical History: Tonsillectomy Additional Past Surgical History / Comment(s): Bilateral cataracts Past Anesthesia/Blood Transfusion Reactions: No Reported Reaction Smoking Status: Former smoker Medications and Allergies Home Medications Medication Instructions Recorded Confirmed Type Fish Oil(Unknown Dose) 1 cap PO DAILY 01/07/24 01/12/24 History Garlic(Unknown Dose) 1 cap PO DAILY 01/07/24 01/12/24 History Aspirin 325 mg PO DAILY #21 tab 01/11/24 01/12/24 Rx Atorvastatin [Lipitor] 80 mg PO HS #30 tab 01/11/24 01/12/24 Rx Clopidogrel [Plavix] 75 mg PO DAILY #30 tab 01/11/24 01/12/24 Rx amLODIPine [Norvasc] 5 mg PO DAILY #30 tab 01/11/24 01/12/24 Rx Allergies Allergy/AdvReac Type Severity Reaction Status Date / Time Penicillins Allergy Unknown Verified 01/12/24 17:07 Childhood Physical Exam Vitals: Vital Signs Temp Pulse Resp BP Pulse Ox 01/17/24 07:00 97.9 F 54 L 16 128/74 99 01/17/24 01:12 97.4 F L 53 L 150/69 98 01/16/24 19:56 97.3 F L 63 16 124/79 98 01/16/24 15:00 98.0 F 62 18 144/69 99 Intake and Output 01/16/24 01/17/24 01/17/24 22:59 06:59 14:59 Intake Total 600 Balance 600 Intake: Oral 600 Other: Voiding Method Toilet # Voids 1 General: Well appearing, well nourished, in no distress Head: Normocephalic, atraumatic Eyes: EOM intact, PERRL Neck: Supple, without lesions Skin: No rash, or skin lesion in exposed areas of skin CV:No cyanosis or peripheral edema Respiratory: No audible wheezing or increased respiratory effort Abdomen: Non-distended and without guarding. Extremities:No cyanosis or edema, dorsalis pedis pulses intact b/l Musculoskeletal: Manual Muscle Testing RightUE and LE 5/5 Left UE 0/5, LLE 4/5 grossly Neuro: No facial droop, no ankle clonus, patellar 1+ b/l, neg tejeda b/l Results CBC & Chem 7: 01/12/24 12:04 01/12/24 12:04 Assessment and Plan Assessment: #Right mullen radiata CVA with left-sided hemiparesis -CTA of the head and neck showed no significant abnormalities 2D echo neg for PFO -Had lengthy discussion with patient about who is very motivated to transfer to an IPR unit. I discussed the concept of IPR. He would like to go to IPR at [facility] which is closer to a friend of his. He does not have any family support here in the area. PT and OT, both services recommending discharge to inpatient rehab. He is walking 150 ft min A with RW. #HLD #HTN
[2024-01-18] MEDS: FAMOTIDINE 20 MG TAB PO SCH (08:41)
--- NOTE | 2024-01-18 10:38 | P.DS ---
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 Patient will continue on Plavix 75 mg daily for primary stroke prevention noted that he has been refusing statin therapy. Patient would benefit from following up with a known urologist within 1 week he was referred to see Dr. Pederson in [place] but has not followed up as he returned to the hospital 24 hours after discharge to be admitted to rehab. Hospital Course History of present illness; 63-year-old man presented to the emergency department on 01/11 with feelings of weakness of his left side, to the point where he does not feel stable and feels unsafe being on his own. He states he has minimal function of his left upper extremity, with an inability to grasp and squeeze well. Additionally, he notes his left lower extremity was beginning to show signs of getting weaker. His past medical history is significant for CVA, for which she was released from this facility on 01/10 and two previous TIAs, one 14 years ago and one 4 years ago. He had initially presented to the emergency d [facility] with complaints of left-sided weakness of both the upper and lower extremity, which have progressively gotten worse prior to him deciding to come to the emergency department. At that time he denies facial deviation, facial droop, slurred speech, difficulty finding words, numbness or tingling, shoulder/neck pain, and no complaints of previous headache. While in the hospital at that time he had a CT of the head which showed intermediate right centrum semioval culver matter changes as well as remote appearing injury to the right mullen radiata of the frontal lobe. CT angiogram of the head and neck at that time showed brachiocephalic arteries are widely patent with no significant stenosis. He had an echocardiogram done that admission which reveals an EF of 55 to 60% with mild MR, trace aortic regurgitation and mild tricuspid regurgitation. His brain MRI reveals diffuse hyperintensities right mullen radiata compatible with this acute ischemic change. There is also additional p eriventricular white matter hyperintensities on T2 and inversion recovery weighted sequences are nonspecific chronic white matter ischemic change atherosclerosis and vasculitis could be considered. There is a hypointense T1 and hyperintense T2 area right mullen radiata which has a punctate area of enhancement along the superior margin differential diagnosis at this location includes lacunar infarct multiple sclerosis plaque. Follow-up can be performed. He was cleared for discharge home after patient returns from 1 day due to weakness and inability to care for himself at home. Initial workup this admission reveals negative chest x-ray, EKG reveals normal sinus rhythm. Patient was brought with under internal medicine service. He has been continued on Plavix therapy. He has been refusing statin therapy at this time. Patient due to the worsening left hemiparesis had felt he would benefit from physical therapy he was evaluated for inpatient rehab and plan is for discharge to [facility] inpatient rehab today. Please see medication reconciliation for a list of current medications. Thank you for allowing us to participate in the care of this patient. The impression and plan of care has been dictated by Leslie Jj, Nurse Practitioner as directed. Dr. Walter MD I have performed a history and physical examination and medical decision making of this patient, discussed the same with the dictator, and agree with the dictators assessment and plan as written, documented as a scribe. Based on total visit time, I have performed more than 50% of this visit. Patient Condition at Discharge: Stable Plan - Discharge Summary Discharge Rx Participant: No New Discharge Prescriptions: No Action Atorvastatin [Lipitor] 80 mg PO HS #30 tab Garlic(Unknown Dose) 1 cap PO DAILY Fish Oil(Unknown Dose) 1 cap PO DAILY Aspirin 325 mg PO DAILY #21 tab amLODIPine [Norvasc] 5 mg PO DAILY #30 tab Clopidogrel [Plavix] 75 mg PO DAILY #30 tab Discharge Medication List Fish Oil(Unknown Dose) 1 cap PO DAILY 01/07/24 [History] Garlic(Unknown Dose) 1 cap PO DAILY 01/07/24 [History] Aspirin 325 mg PO DAILY #21 tab 01/11/24 [Rx] Atorvastatin [Lipitor] 80 mg PO HS #30 tab 01/11/24 [Rx] Clopidogrel [Plavix] 75 mg PO DAILY #30 tab 07/15/24 [Rx] amLODIPine [Norvasc] 5 mg PO DAILY #30 tab 01/11/24 [Rx] Follow up Appointment(s)/Referral(s): None,Stated [Primary Care Provider] - 1-2 days
[2024-01-19 11:54] VITALS: BMI 20.5
--- NOTE | 2024-01-19 14:45 | P.PN ---
Subjective Progress Note Date: 01/19/24 Patient is evaluated in follow up today on the medical floor. Continues to report left hemiparesis has very minimal twisting operator strength and essentially unable to use his left arm/hand. He does report feeling congested and watery eyes; Patient is not having any shortness of breawth, or chest pain. Hemodynamically he is stable. He continues on plavix for primary stroke prevention, refusing statin therapy. He will be given DVT prophylaxais with subcutaneous heparin while in the hospital. 01/19/2024 Patient is evaluated in follow-up on the medical floor he continues to have left-sided weakness but however his strength and twisting operator has improved he is working with physical therapy and Occupational Therapy daily and currently pending authorization for discharge to [facility]. Discussed with patient that we are still waiting for authorization. We are still waiting for authorization. He continues on Plavix daily he is continue to refuse statin therapy. He is also refusing the subcutaneous heparin. Review of Systems Constitutional: Denied any fatigue denied any fever. Gastrointestinal: denied any nausea, vomiting, diarrhea Pulmonary: Denied any shortness of breath cough Neurologic denied any new focal deficits: continues to report left sided weakness. All inpatient medications were reviewed and appropriate changes in these medications as dictated in the interval history and assessment and plan. PHYSICAL EXAMINATION: GENERAL: The patient is alert and oriented x3, not in any acute distress. Well developed, well nourished. HEENT: Pupils are round and equally reacting to light. EOMI. No scleral icterus. No conjunctival pallor. Normocephalic, atraumatic. No pharyngeal erythema. No thyromegaly. CARDIOVASCULAR: S1 and S2 present. No murmurs, rubs, or gallops. PULMONARY: Chest is clear to auscultation, no wheezing or crackles. ABDOMEN: Soft, nontender, nondistended, normoactive bowel sounds. No palpable organomegaly. MUSCULOSKELETAL: No joint swelling or deformity. EXTREMITIES: No cyanosis, clubbing, or pedal edema. NEUROLOGICAL: Left hemiparesis SKIN: No rashes. Assessment and Plan Acute ischemic stroke right mullen radiata with left sided hemiparesis Sinus bradycardia Hyperlipidemia Hypertension Allergic rhinitis Former tobacco use Alcohol use disorder DVT prophylaxis: Subcutaneous heparin Full Code Plan Patient is continued on plavix 75 mg daily for primary stroke prevention Continues to refuse statin therapy Patient continues on decreased dose of amlodipine 2.5 mg daily Recommend to add pepcid 20 mg daily for GI prophylaxis Add claritin 5 mg daily for allergy symptoms patient states he takes eliseo -D 24 hour daily at home Patient is pending discharge to [facility] rehabilitation and will likely be discharged in the next 24 hours. The impression and plan of care has been dictated by Leslie Jj, Nurse Practitioner as directed. Dr. Walter MD I have performed a history and physical examination and medical decision making of this patient, discussed the same with the dictator, and agree with the dictators assessment and plan as written, documented as a scribe. Based on total visit time, I have performed more than 50% of this visit. Objective - Vital Signs Vital signs: Vital Signs Temp 98 F 01/19/24 13:47 Pulse 55 L 01/19/24 13:47 Resp 17 01/19/24 13:47 BP 146/74 01/19/24 13:47 Pulse Ox 100 01/19/24 07:12 FiO2 Intake & Output 01/18/24 01/19/24 01/19/24 18:59 06:59 18:59 Intake Total 138 780 0 Output Total 4 Balance 138 776 0 Weight 68.492 kg Intake: Oral 138 780 0 Output: Urine 4 Other: Voiding Method Toilet Toilet # Voids 1 - Labs CBC & Chem 7: 01/12/24 12:04 01/12/24 12:04 Assessment and Plan Time with Patient: Less than 30
--- NOTE | 2024-01-20 14:58 | P.PN ---
Subjective Progress Note Date: 01/20/24 Patient is evaluated in follow up today on the medical floor. Continues to report left hemiparesis has very minimal congressional aide strength and essentially unable to use his left arm/hand. He does report feeling congested and watery eyes; Patient is not having any shortness of breawth, or chest pain. Hemodynamically he is stable. He continues on plavix for primary stroke prevention, refusing statin therapy. He will be given DVT prophylaxais with subcutaneous heparin while in the hospital. 01/19/2024 Patient is evaluated in follow-up on the medical floor he continues to have left-sided weakness but however his strength and congressional aide has improved he is working with physical therapy and Occupational Therapy daily and currently pending authorization for discharge to [facility] [place]. Discussed with patient that we are still waiting for authorization. We are still waiting for authorization. He continues on Plavix daily he is continue to refuse statin therapy. He is also refusing the subcutaneous heparin. 01/20/2024 Patient is seen and evaluated in follow-up this morning no acute overnight issues noted. Patient continues to report significant left-sided weakness and difficulty lifting his arm and doing normal daily functions. Patient is quite concerned as reports he is declining since he has been hospitalized here and has been hospitalized for over 6 days now currently awaiting insurance authorization to [facility] inpatient rehab. Patient has been accepted and had been awaiting insurance authorization is entire time. Per case management, [facility] notified them of insurance authorization today at 2:30 PM although also reported the physician at the facility is unable to accept discharges that are not done prior to noon. Patient will likely be discharged in a.m. Patient is afebrile with no reports of chest pain or shortness of breath. Patient is extremely frustrated and anxious he has been having to wait this long for insurance authorization. Review of Systems Constitutional: Denied any fatigue denied any fever. Gastrointestinal: denied any nausea, vomiting, diarrhea Pulmonary: Denied any shortness of breath cough Neurologic denied any new focal deficits: continues to report left sided weakness. Reports his weakness is worse than when he came in. All inpatient medications were reviewed and appropriate changes in these medications as dictated in the interval history and assessment and plan. PHYSICAL EXAMINATION: GENERAL: The patient is alert and oriented x3, not in any acute distress. Anxious well developed, well nourished. Elderly appearing HEENT: Pupils are round and equally reacting to light. EOMI. No scleral icterus. No conjunctival pallor. Normocephalic, atraumatic. No pharyngeal erythema. No thyromegaly. CARDIOVASCULAR: S1 and S2 present. No murmurs, rubs, or gallops. PULMONARY: Chest is clear to auscultation, no wheezing or crackles. ABDOMEN: Soft, nontender, nondistended, normoactive bowel sounds. No palpable organomegaly. MUSCULOSKELETAL: No joint swelling or deformity. EXTREMITIES: No cyanosis, clubbing, or pedal edema. Left side congressional aide strength 3/5 in upper extremity 3/5 NEUROLOGICAL: Left hemiparesis SKIN: No rashes. Assessment and Plan Acute ischemic stroke right mullen radiata with left sided hemiparesis Sinus bradycardia Hyperlipidemia Hypertension Allergic rhinitis Former tobacco use Alcohol use disorder GI prophylaxis DVT prophylaxis: Subcutaneous heparin Full Code Plan Patient is continued on plavix 75 mg daily for primary stroke prevention Continues to refuse statin therapy Patient continues on decreased dose of amlodipine 2.5 mg daily Continue pepcid 20 mg daily for GI prophylaxis Add claritin 5 mg daily for allergy symptoms patient states he takes eliseo -D 24 hour daily at home Patient is pending discharge to [facility] inpatient rehabilitation and case management was just made aware at 2:30 PM today that patient had insurance authorization at [facility]. [facility] facility reported physician was unable to accept the patient as the discharge needs to be completed before noon on day of discharge. Again case management was not made aware until after 2:30 PM today of the insurance authorization. Patient will be discharged in 24 hours. The impression and plan of care has been dictated by Mariza Acosta, Nurse Practitioner as directed. Dr. Walter MD I have performed a history and physical examination and medical decision making of this patient, discussed the same with the dictator, and agree with the dictators assessment and plan as written, documented as a scribe. Based on total visit time, I have performed more than 50% of this visit. Objective - Vital Signs Vital signs: Vital Signs Temp 98 F 01/20/24 07:07 Pulse 57 L 01/20/24 07:07 Resp 16 01/20/24 07:07 BP 133/76 01/20/24 07:07 Pulse Ox 99 01/20/24 09:24 FiO2 Intake & Output 01/19/24 01/20/24 01/20/24 18:59 06:59 18:59 Intake Total 120 540 240 Balance 120 540 240 Weight 68.492 kg Intake: Oral 120 540 240 Other: Voiding Method Toilet Toilet # Voids 6 2 # Bowel Movements 1 - Labs CBC & Chem 7: 01/12/24 12:04 01/12/24 12:04
[2024-01-20 20:40] VITALS: RESP 16
[2024-01-21 08:05] VITALS: BP 146/60; PULSE 61; TEMP 97.4
--- NOTE | 2024-01-25 09:41 | P.DS ---
Providers Date of admission: 01/12/24 16:46 Expected date of discharge: 01/21/24 Attending physician: Xavier Givens Consults: 01/13/24 09:07 Consult Physician Routine Consulting Provider: Rodrigo Murillo Reason/Comments: in pt rehab Do you want consulting provider notified?: Yes Primary care physician: Stated None Hospital Course: Final Diagnosis Acute ischemic stroke right mullen radiata with left sided hemiparesis Sinus bradycardia Hyperlipidemia Hypertension Allergic rhinitis Former tobacco use Alcohol use disorder Discharge Disposition Patient is medically cleared for discharge to [facility] inpatient rehabilitation. Patient will continue on Plavix 75 mg daily for primary stroke prevention noted that he has been refusing statin therapy. Patient would benefit from following up with a known urologist within 1 week he was referred to see Dr. Pederson in [place] but has not followed up as he returned to the hospital 24 hours after discharge to be admitted to rehab. Hospital Course History of present illness; 63-year-old man presented to the emergency department on 01/11 with feelings of weakness of his left side, to the point where he does not feel stable and feels unsafe being on his own. He states he has minimal function of his left upper extremity, with an inability to grasp and squeeze well. Additionally, he notes his left lower extremity was beginning to show signs of getting weaker. His past medical history is significant for CVA, for which she was released from this facility on 01/10 and two previous TIAs, one 14 years ago and one 4 years ago. He had initially presented to the emergency department with complaints of left-sided weakness of both the upper and lower extremity, which have progressively gotten worse prior to him deciding to come to the emergency department. At that time he denies facial deviation, facial droop, slurred speech, difficulty finding words, numbness or tingling, shoulder/neck pain, and no complaints of previous headache. While in the hospital at that time he had a CT of the head which showed intermediate right centrum semioval culver matter changes as well as remote appearing injury to the right mullen radiata of the frontal lobe. CT angiogram of the head and neck at that time showed brachiocephalic arteries are widely patent with no significant stenosis. He had an echocardiogram done that admission which reveals an EF of 55 to 60% with mild MR, trace aortic regurgitation and mild tricuspid regurgitation. His brain MRI reveals diffuse hyperintensities right mullen radiata compatible with this acute ischemic change. There is also additional periventricular white matter hyperintensities on T2 and inversion recovery weighted sequences are nonspecific chronic white matter ischemic change atherosclerosis and vasculitis could be considered. There is a hypointense T1 and hyperintense T2 area right mullen radiata which has a punctate area of enhancement along the superior margin differential diagnosis at this location includes lacunar infarct multiple sclerosis plaque. Follow-up can be performed. He was cleared for discharge home after patient returns from 1 day due to weakness and inability to care for himself at home. Initial workup this admission reveals negative chest x-ray, EKG reveals normal sinus rhythm. Patient was brought with under internal medicine service. He has been continued on Plavix therapy. He has been refusing statin therapy at this time. Patient due to the worsening left hemiparesis had felt he would benefit from physical therapy he was evaluated for inpatient rehab and plan is for discharge to [facility] inpatient rehab today. 01/21/2024 Patient has received insurance authorization for inpatient rehab at [facility] and is being arranged for discharge today. Patient has been instructed to follow-up with neurology outpatient as well as his primary care provider on discharge. Physical exam: Gen: This is a 63-year-old male who is awake, alert and oriented x 3, well- developed, elderly appearing HEENT: Head is atraumatic, normocephalic. Pupils equal, round. Sclerae is anicteric. NECK: Supple. No JVD. No lymphadenopathy. No thyromegaly. LUNGS: Clear to auscultation. No wheezes or rhonchi. No intercostal retractions. HEART: Regular rate and rhythm. No murmur. ABDOMEN: Soft. Bowel sounds are present. No masses. No tenderness. EXTREMITIES: No pedal edema. No calf tenderness. Left side upper extremity weakness 3/5 with decreased hand movement NEUROLOGICAL: Patient is awake, alert and oriented x3. Cranial nerves 2 through 12 are grossly intact. Diffusely weak Please see medication reconciliation for a list of current medications. Thank you for allowing us to participate in the care of this patient. The impression and plan of care has been dictated by Mariza Acosta, Nurse Practitioner as directed. Dr. Chon MD I have performed a history and physical examination and medical decision making of this patient, discussed the same with the dictator, and agree with the dictators assessment and plan as written, documented as a scribe. Based on total visit time, I have performed more than 50% of this visit. Patient Condition at Discharge: Stable Plan - Discharge Summary Discharge Rx Participant: No New Discharge Prescriptions: New Heparin Sodium,Porcine (1 ml) [Heparin Sodium] 5,000 unit SQ Q12HR each Loratadine [Claritin] 5 mg PO DAILY tab amLODIPine [Norvasc] 2.5 mg PO DAILY tab Famotidine [Pepcid] 20 mg PO DAILY tab Continue Atorvastatin [Lipitor] 80 mg PO HS #30 tab Garlic(Unknown Dose) 1 cap PO DAILY Fish Oil(Unknown Dose) 1 cap PO DAILY Aspirin 325 mg PO DAILY #21 tab Clopidogrel [Plavix] 75 mg PO DAILY #30 tab Discontinued amLODIPine [Norvasc] 5 mg PO DAILY #30 tab Discharge Medication List Fish Oil(Unknown Dose) 1 cap PO DAILY 01/07/24 [History] Garlic(Unknown Dose) 1 cap PO DAILY 01/07/24 [History] Aspirin 325 mg PO DAILY #21 tab 01/11/24 [Rx] Atorvastatin [Lipitor] 80 mg PO HS #30 tab 01/11/24 [Rx] Clopidogrel [Plavix] 75 mg PO DAILY #30 tab 01/11/24 [Rx] Famotidine [Pepcid] 20 mg PO DAILY tab 01/18/24 [Rx] Heparin Sodium,Porcine (1 ml) [Heparin Sodium] 5,000 unit SQ Q12HR each 01/18/24 [Rx] Loratadine [Claritin] 5 mg PO DAILY tab 01/18/24 [Rx] amLODIPine [Norvasc] 2.5 mg PO DAILY tab 01/18/24 [Rx] Follow up Appointment(s)/Referral(s): Jamal Pederson MD [Medical Doctor] - 1 Week None,Stated [Primary Care Provider] - 1-2 days Discharge/Stand Alone Forms: Area PCPs Discharge Disposition: TRANSFER TO SNF/ECF
== END 2024-01-21 12:00 ==
LOC: EC 10:38 → 6NMEDSUR 16:46
PROVIDERS: ADMIT Hospitalist; ATTEND Hospitalist
DX: I63.81 Other cerebral infarction due to occlusion or stenosis of small artery (principal); G81.94 Hemiplegia, unspecified affecting left nondominant side; I08.2 Rheumatic disorders of both aortic and tricuspid valves; E78.49 Other hyperlipidemia; I10 Essential (primary) hypertension; R00.1 Bradycardia, unspecified; J30.9 Allergic rhinitis, unspecified; F10.90 Alcohol use, unspecified, uncomplicated; Z60.2 Problems related to living alone; Z79.82 Long term (current) use of aspirin; Z79.02 Long term (current) use of antithrombotics/antiplatelets; Z79.899 Other long term (current) drug therapy; Z88.0 Allergy status to penicillin; Z87.891 Personal history of nicotine dependence; Z86.73 Personal history of transient ischemic attack (TIA), and cerebral infarction without residual deficits
CPT/HCPCS: 99285; 36415; 94760 ×2; 93005; 97116 ×2; 97110; 97530 ×5; 97162; 97112 ×5; 97535 ×5; 97167; 80053; 83605; 83735; 84100; 84484; 85025; 85610; 85730; 81003; 71046; G0378 ×10